=== PATIENT | male | born 1990 | race Caucasian/White ===

== ENCOUNTER 2020-09-29 15:03 | Outpatient (CLI) | payer BC, SELFPAY ==
--- NOTE | ~2020-09-29 | XR_ITS ---
XR tibia fibula LT 2V DATE: 09/29/2020 15:21 INDICATION: Malformation of lower leg TECHNIQUE: AP and lateral views COMPARISON: 10/01/2018 left lower leg 04/13/2017 left lower leg FINDINGS: There is a stable expansile lucent defect with narrow zone of transition involving the prox imal fibular shaft, unchanged in size since 10/01/2018 and 04/13/2017, measuring approximately 4 cm abdi gth. No periosteal reaction. Different diagnosis includes fibrous dysplasia, unicameral bone cyst, an eurysmal bone cyst. Otherwise no fracture, dislocation, periosteal reaction or bone destruction. Knee joint and ankle rubia nt appear normal. 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 TANCE ABUSE RN IMPRESSION: Stable benign-appearing expansile lucent lesion of the proximal fib ular shaft since 10/01/2018 and 04/13/2017
== END 2020-09-29 15:04 | disposition home or self-care (01) ==
PROVIDERS: Family Provider Family Medicine; PCP Family Medicine; Visit Provider Physician Assistant
DX: Q74.2 Other congenital malformations of lower limb(s), including pelvic girdle (principal); M85.662 Other cyst of bone, left lower leg
CPT/HCPCS: 73590

== ENCOUNTER 2021-12-17 08:43 | Emergency (ER) | payer BC, SELFPAY ==
[2021-12-17 08:50] VITALS: BP 124/75; PULSE 65; RESP 16; TEMP 36.1; O2SAT 100
--- NOTE | 2021-12-17 09:48 | ED.EAR ---
HPI - Ear Problem General Chief complaint: Ear Stated complaint: Ear Pain Time Seen by Provider: 12/17/21 09:49 Source: patient Mode of arrival: ambulatory Limitations: no limitations History of Present Illness HPI Narrative: 31-year-old male presents with complaint of right ear pain for 2 to 3 days. Reports he was having drainage coming from his right ear. Over the last year he has had several inner and outer ear infections. During the summer he had a new pool and had several ear infections but he thought that it was related to the swelling. No recent swimming. Patient does have an ENT specialist to follow-up with. All systems reviewed and negative except as noted above. Related Data Allergies Allergy/AdvReac Type Severity Reaction Status Date / Time HYDROCODONE BIT Allergy Unknown ITCHING Uncoded 03/28/21 15:08 Review of Systems Review of Systems: CONSTITUTIONAL: Denies fever, chills, or sweats. EYES: Denies visual changes, redness, or discharge. ENT: Denies rhinorrhea, congestion, sore throat. Reports right ear pain. CARDIOVASCULAR: Denies chest pain, palpitations, or edema. RESPIRATORY: Denies cough or dyspnea. GASTROINTESTINAL: Denies abdominal pain, nausea, vomiting, or diarrhea. GENITOURINARY: Denies dysuria or hematuria. SKIN: Denies rash or itching. MUSCULOSKELETAL: Denies back pain, joint pain, or myalgia. NEUROLOGIC: Denies headache, numbness, or weakness. PSYCHIATRIC: Denies anxiety or depression. All other systems reviewed are negative, except as documented in HPI. [facility] Past Medical History Medical History GERD (gastroesophageal reflux disease) Neoplasm of left fibula Surgical History Surgical History H/O hand surgery Social History Social History Smoking status: Former smoker Second hand tobacco smoke exposure: No Smoking end date: 09/03/17 Alcohol intake: current Substance use: never Substance use type: does not use Gender identity (if verbalized by the patient): Male Comments At time of signature, agree with nursing past medical, surgical, social and family history. There is no relevant family history pertinent to the presenting complaint. Exam Narrative: GENERAL: This is a well-nourished, well-developed patient, in no apparent distress. HEAD: normocephalic, atraumatic. EYES: PERRL. Sclera clear/white. Vision is grossly intact. EARS: External ears normal, TMs normal without perforation. Hearing grossly intact. Right ear canal is erythematous with swelling and a milky drainage. NOSE: External nose normal with no obvious nasal discharge, nares without redness, no rhinorrhea. THROAT: Mucous membranes moist, posterior pharynx clear. NECK: Neck supple, non-tender without lymphadenopathy, masses or thyromegaly. CARDIOVASCULAR: Regular rate and rhythm without murmurs, gallops, or rubs. RESPIRATORY: Clear to auscultation. Breath sounds equal bilaterally. No wheezes, rales, or rhonchi. SKIN: warm, Dry, intact with no suspicious lesions or rash, good texture and turgor. NEURO: awake, alert, and oriented to person, place and time. There were no obvious focal neurologic abnormalities. EXTREMITIES: Normal range of motion to all extremities. Course Course Level of Care: Express Care Visit Vital Signs Vital signs: Vital Signs Temperature 36.1 C L 12/17/21 08:50 Pulse Rate 65 12/17/21 08:50 Respiratory Rate 16 12/17/21 08:50 Blood Pressure 124/75 12/17/21 08:50 Pulse Oximetry 100 12/17/21 08:50 Temperature 36.1 C L 12/17/21 08:50 Pulse Rate 65 12/17/21 08:50 Respiratory Rate 16 12/17/21 08:50 Blood Pressure 124/75 12/17/21 08:50 Pulse Oximetry 100 12/17/21 08:50 Reviewed Medical Decision Making MDM Narrative Medical decision making narrative: Patient is aware of diagnosis, understands and a
== END 2021-12-17 09:57 | disposition home or self-care (01) ==
PROVIDERS: Emergency Provider Nurse Practitioner Family; PCP Family Medicine
DX: H60.91 Unspecified otitis externa, right ear (principal); Z87.891 Personal history of nicotine dependence; K21.9 Gastro-esophageal reflux disease without esophagitis; Z85.830 Personal history of malignant neoplasm of bone
CPT/HCPCS: 99213; G0463

== ENCOUNTER 2023-10-31 10:56 | Outpatient (CLI) | payer BC, SELFPAY ==
--- NOTE | ~2023-10-31 | XR_ITS ---
EXAMINATION: XR tibia fibula LT 2V DATE: 10/31/2023 11:12 INDICATION: Neoplasm of unspecified behavior of bone. TECHNIQUE: 2 views of left tibia and fibula were obtained. COMPARISON: Left tibia and fibula radiograph 04/13/2017, 09/29/20 FINDINGS: Bone alignment is normal. No fracture. In the proximal fibular diaphysis, there is a 4.2 x 1.8 cm expansile nonaggressive lytic lesion with sclerotic margin and thinning of the lateral cortex. Joint spaces are normal. IMPRESSION: 1. Nonaggressive lytic lesion in proximal left fibular diaphysis, stable from 04/13/2017, likely benig n. The differential diagnosis includes unicameral bone cyst, aneurysmal bone cyst, fibrous dysplasia, enchondroma, and nonossifying fibroma. Reviewed, dictated and finalized at location A. RACT GRAPHIC DESIGNER IMPRESSION: 1. Nonaggressive lytic lesion in proximal left fibular diaphysis, stable from , likely benign. The differential diagnosis includes unicameral bone cy st, aneurysmal bone cyst, fibrous dysplasia, enchondroma, and nonossifying fibr mp.
[2023-10-31 11:43] LABS: Basophils Absolute Auto 0.1 K/mm3 (0.0-0.1); Basophils Percent Auto 1.6 % (0.2-1.2); Eosinophils Absolute Auto 0.3 K/mm3 (0-0.3); Eosinophils Percent Auto 5.5 % (0-4.4); Hemoglobin 11.9 g/dL (14.0-18.0); Immature Granulocyte Absolute 0.01 K/mm3 (0.00-0.031); Immature Granulocyte Percent A 0.2 % (0-0.5); Lymphocytes Absolute Auto 3.17 K/mm3 (0.9-3.2); Lymphocytes Percent Auto 51.4 % (18.3-44.2); Mean Corpuscular Hemoglobin 23.2 pg (26-34); Mean Corpuscular Volume 80.1 fl (80-100); Mean Platelet Volume 10.1 fl (7.4-10.4); Monocytes Absolute Auto 0.6 K/mm3 (0.1-0.6); Monocytes Percent Auto 9.7 % (2.6-8.5); Neutrophils Percent Auto 31.6 % (45.5-73.1); Platelet Count Result 379 k/mm3 (150-375); Red Blood Count 5.12 M/mm3 (4.6-6.20); Red Cell Distribution Width 16.8 % (11.5-14.5); White Blood Count 6.2 K/mm3 (4.5-10.0)
[2023-10-31 12:03] LABS: Alanine Aminotransferase 23 U/L (6-50); Albumin Level 4.4 g/dL (3.5-5.1); Alkaline Phosphatase 77 U/L (38-126); Anion Gap 9 mmol/L (8-16); Aspartate Amino Transferase 34 U/L (17-59); Bilirubin,Total 0.4 mg/dL (0.2-1.3); Blood Urea Nitrogen 14 mg/dL (9-20); Calcium 9.5 mg/dL (8.4-10.2); Carbon Dioxide 25 mmol/L (22-30); Chloride 108 mmol/L (98-107); Estimated Glomerular Filt Rate > 60; Glucose 86 mg/dL (65-110); Potassium 3.8 mmol/L (3.4-5.0); Sodium 142 mmol/L (137-145)
[2023-10-31 12:22] LABS: Iron 36 ug/dL (49-181)
[2023-10-31 12:31] LABS: Percent Iron Saturation 7 % (20-50)
[2023-10-31 12:42] LABS: Anisocytosis 1+ (NORMAL); Hypochromasia 1+ (NORMAL); Platelet Estimate Increased (Adequate); Schistocytes None Seen (NORMAL)
[2023-10-31 12:57] LABS: Ferritin 6.46 ng/mL (17.9-464)
[2023-11-03 21:50] LABS: H pylori, Urea Breath DETECTED (NOT DETECTED)
== END 2023-10-31 10:57 | disposition home or self-care (01) ==
LOC: ANHIMG 11:00
PROVIDERS: PCP Family Medicine; Visit Provider Physician Assistant Medical
DX: D16.22 Benign neoplasm of long bones of left lower limb (principal); D64.9 Anemia, unspecified; E78.2 Mixed hyperlipidemia
CPT/HCPCS: 36415; 73590; 80053; 82728; 83013; 83540; 83550; 85025

== ENCOUNTER 2024-01-29 00:58 | Day surgery (SDC) | payer BC, SELFPAY ==
[2024-01-10 09:47] VITALS: BMI 29.7
[2024-01-29 06:29] VITALS: BP 128/68; PULSE 64; RESP 16; TEMP 36.2; O2SAT 99
[2024-01-29] MEDS: LACTATED RINGERS 1,000 ML 150 ML IV CONT (06:37)
--- NOTE | 2024-01-29 07:18 | WPDANESEPPF ---
Anes - Initial Pre Proc Eval Procedure: Operation Date: 01/29/24 07:30 Proposed Procedures p Esophagogastroduodenoscopy - Moustapha Chowdary MD Date/Time: 01/29/24 07:18 Surgeon: Moustapha Chowdary MD Pre Op Diagnosis: JENNIFER, Eosinophilic esophagitis, other bacterial inf Patient Data Age: 33 Gender: M Height: 1.7 m Weight: 86.5 kg Last Vital Signs Temp 97.1 F L 01/29/24 06:29 Pulse 64 01/29/24 06:29 Resp 16 01/29/24 06:29 BP 128/68 01/29/24 06:29 Pulse Ox 99 01/29/24 06:29 O2 Del Method Room Air 01/29/24 06:29 Allergies Allergy/AdvReac Type Severity Reaction Status Date / Time HYDROCODONE BIT Allergy Unknown ITCHING Uncoded 01/29/24 06:26 Home Medications Medication Instructions Recorded Confirmed Type ferrous sulfate 325 mg (65 mg 325 mg PO DAILY #30 tabs 11/01/23 01/29/24 Rx iron) tablet dextroamphetamine-amphetamine ER 10 mg PO DAILY #30 caps 01/09/24 01/29/24 Rx 10 mg 24hr capsule,extend release (Adderall XR) Patient hx anesthesia problems: none Family hx anesthesia problems: none Results Review: All pre-operative results and documents have been reviewed as part of the pre-operative evaluation. [facility] Past Medical History Medical History ADHD Eosinophilic esophagitis GERD (gastroesophageal reflux disease) Neoplasm of left fibula Surgical History Surgical History H/O hand surgery H/O vasectomy Family History Family History Father Alcoholism Mother Diabetes mellitus Sibling Asthma Social History Social History Smoking packs per day: 1 Smoking cigarettes per day: 20.0 Smoking status: Former smoker Tobacco type: cigarettes Second hand tobacco smoke exposure: No Smoking end date: 09/03/17 Alcohol intake: current Drinks per week: 1 Substance use: never Substance use type: does not use Do You Feel Safe in your Home?: Yes Lack of Transportation: No Lack of Food: Never True Current Housing: I Have Housing Concerned About Future Housing: No Difficulty Paying Gas/Electric Bills: No Difficulty Paying for Meds: No Currently Unemployed: No Difficulty w/ Childcare or Family Care: No Living arrangements: with family Occupation/Education: occupation Gender identity (if verbalized by the patient): Male Spiritual care concerns: No Agree to blood products: Yes Anes - Eval Final PreProcedure Day of Procedure 01/29/24 07:18 Patient weight: normal Heart: regular rate and rhythm Lungs: clear to auscultation Airway: Mallampati scale class II Neurological: alert and oriented Last oral intake: >/= 8 hours ASA classification: II Emergent: no Anesthetic plan: proceed Anesthesia type and monitoring: general GIVS and standard monitoring Results Review: All pre-operative results and documents have been reviewed as part of the pre-operative evaluation. Informed Consent: The patient's anesthetic plan and its attendant risks and benefits were discussed with the patient/family/POA. Questions were solicited and answers provided to the satisfaction of the patient/family/POA.
--- NOTE | 2024-01-29 07:26 | PM.HPGS ---
History of Present Illness History of Present Illness Consent: Risks, benefits, and alternatives have been discussed and questions answered. Patient agrees to proceed with procedure. Chief complaint: JENNIFER, Eosinophilic esophagitis, other bacterial inf Narrative: Elgin Alejandra is a 33 year old male here for egd and colonoscopy. He had mild anemia and positive H. pylori breath test. Low hgb was noted recently when he went to donate blood, had EGD 2016 when had dysphagia resolved since, biopsies showed EoE. Review of Systems Review of Systems: All systems reviewed & are unremarkable except as noted in HPI and below PMFSH Past Medical History Medical History ADHD Eosinophilic esophagitis GERD (gastroesophageal reflux disease) Neoplasm of left fibula Surgical History Surgical History H/O hand surgery H/O vasectomy Family History Family History Father Alcoholism Mother Diabetes mellitus Sibling Asthma Social History Social History Smoking packs per day: 1 Smoking cigarettes per day: 20.0 Smoking status: Former smoker Tobacco type: cigarettes Second hand tobacco smoke exposure: No Smoking end date: 09/03/17 Alcohol intake: current Drinks per week: 1 Substance use: never Substance use type: does not use Do You Feel Safe in your Home?: Yes Lack of Transportation: No Lack of Food: Never True Current Housing: I Have Housing Concerned About Future Housing: No Difficulty Paying Gas/Electric Bills: No Difficulty Paying for Meds: No Currently Unemployed: No Difficulty w/ Childcare or Family Care: No Living arrangements: with family Occupation/Education: occupation Gender identity (if verbalized by the patient): Male Spiritual care concerns: No Agree to blood products: Yes Meds Home Medications and Allergies Home Medications Medication Instructions Recorded Confirmed Type ferrous sulfate 325 mg (65 mg 325 mg PO DAILY #30 tabs 11/01/23 01/29/24 Rx iron) tablet dextroamphetamine-amphetamine ER 10 mg PO DAILY #30 caps 01/09/24 01/29/24 Rx 10 mg 24hr capsule,extend release (Adderall XR) Allergies Allergy/AdvReac Type Severity Reaction Status Date / Time HYDROCODONE BIT Allergy Unknown ITCHING Uncoded 01/29/24 06:26 Vital Signs Vital Signs - 24 hr 01/29/24 06:29 Temperature 97.1 F L Pulse Rate 64 Respiratory Rate 16 Blood Pressure 128/68 Pulse Oximetry 99 Oxygen Delivery Room Air Exam Const: General: comfortable and no acute distress HENMT: Face/Nose/Sinus: Normal nares present Eyes: General: appearance normal, both eyes and all related structures Neck: Neck: no JVD Resp: Auscultation: clear to auscultation bilaterally Cardio: Rate: regular rate Rhythm: regular rhythm GI: Inspection: non-distended GI Palp: Yes Soft to palpation Skin: General skin exam: normal color Neuro: General: gait normal Speech: normal speech Extrem: General: normal to inspection Psych: Mental Status: mental status grossly normal Assessment and Plan Assessment and plan (1) H. pylori infection: Code(s): A04.8 - Other specified bacterial intestinal infections Status: Acute Assessment and Plan: egd with bx, already completed treatment (2) Iron deficiency anemia: Code(s): D50.9 - Iron deficiency anemia, unspecified Status: Acute Assessment and Plan: egd and colonoscopy
[2024-01-29 07:43] VITALS: BP 120/88; PULSE 71; RESP 20; O2SAT 99
[2024-01-29 07:53] VITALS: BP 123/77; PULSE 68; RESP 20; O2SAT 100
[2024-01-29 08:03] VITALS: BP 125/69; PULSE 67; RESP 16; O2SAT 100
--- NOTE | 2024-01-29 08:21 | SUR.PHASEII ---
Discharge delayed due to ride conflict.
== END 2024-01-29 08:30 | disposition home or self-care (01) ==
PROVIDERS: PCP Family Medicine; Visit Provider Internal Medicine Gastroenterology
PROC: 0DJ08ZZ Inspection of Upper Intestinal Tract, Via Natural or Artificial Opening Endoscopic (ICD-10-PCS; CPT 43235; principal; 2024-01-29 07:30)
DX: K29.80 Duodenitis without bleeding (principal); K29.50 Unspecified chronic gastritis without bleeding; D50.9 Iron deficiency anemia, unspecified; Z87.19 Personal history of other diseases of the digestive system; K21.9 Gastro-esophageal reflux disease without esophagitis; Z87.891 Personal history of nicotine dependence; F90.9 Attention-deficit hyperactivity disorder, unspecified type
CPT/HCPCS: 43239; 88305; J2704; J7120

== ENCOUNTER 2024-05-26 19:33 | Emergency (ER) | payer BC, SELFPAY ==
[2024-05-26 19:36] VITALS: BP 123/94; PULSE 78; RESP 20; TEMP 36.5; O2SAT 98
--- NOTE | 2024-05-26 20:14 | ED.EAR ---
HPI - Ear Problem General Chief complaint: Ear Stated complaint: ear infection Time Seen by Provider: 05/26/24 19:51 Source: patient Mode of arrival: ambulatory Limitations: no limitations History of Present Illness HPI Narrative: This is a 33-year-old male, with no significant past medical history, presents to the emergency department complaining of right ear pain for the past 3 days. The patient states in that time, he has had upper respiratory congestion, bilateral ear fullness with pain on the right described as dull and intermittently throbbing, rated 4/10. He denies associated fevers, chills or cough. He states today he has noticed bilateral eye watering and mild sensation of foreign body. He denies any eye trauma or known environmental exposures. He has no other complaints at this time. Related Data Allergies Allergy/AdvReac Type Severity Reaction Status Date / Time HYDROCODONE BIT Allergy Unknown ITCHING Uncoded 05/26/24 19:41 Review of Systems Review of Systems: All systems reviewed & are unremarkable except as noted in HPI and below PMFSH Past Medical History Medical History ADHD Eosinophilic esophagitis GERD (gastroesophageal reflux disease) Neoplasm of left fibula Surgical History Surgical History H/O hand surgery H/O vasectomy Family History Family History Father Alcoholism Mother Diabetes mellitus Sibling Asthma Social History Social History Smoking packs per day: 1 Smoking cigarettes per day: 20.0 Smoking status: Former smoker Tobacco type: cigarettes Second hand tobacco smoke exposure: No Smoking end date: 09/03/17 Alcohol intake: current Drinks per week: 1 Substance use: never Substance use type: does not use Do You Feel Safe in your Home?: Yes Lack of Transportation: No Lack of Food: Never True Current Housing: I Have Housing Concerned About Future Housing: No Difficulty Paying Gas/Electric Bills: No Difficulty Paying for Meds: No Currently Unemployed: No Difficulty w/ Childcare or Family Care: No Living arrangements: with family Occupation/Education: occupation Gender identity (if verbalized by the patient): Male Spiritual care concerns: No Agree to blood products: Yes Exam Narrative: GENERAL: Well-developed, well-nourished, and in no acute distress. HEAD: Normocephalic, atraumatic. EYES: PERRLA and EOMI. Mild bilateral scleral injection with cobblestoning noted on the palpebral conjunctiva ENT: Nares clear, no rhinorrhea or epistaxis. Mucous membranes moist. Oropharynx without tonsillar hypertrophy exudate or other lesions. Bilateral TMs pearly raygoza and bulging with faint erythema noted on the right CHEST: Clear to auscultation. No respiratory distress. No wheezes rales or rhonchi HEART: Regular rate and rhythm. No murmur heard. Normal peripheral pulses. EXTREMITIES: Normal range of motion. No edema. SKIN: Warm, dry, no rash. NEURO: Alert and oriented x3. No focal deficit. Moving all 4 limbs spontaneously PSYCH: Normal mood and affect. Course Course Emergency Course: 20:27 - The patient's exam is consistent with a viral upper respiratory infection and viral conjunctivitis. I do not suspect otitis media at this time. Will discharge with decongestants and the beginning eyedrops. I advised the patient follow-up with his primary care doctor. Discussed return and emergency precautions including signs/symptoms of otitis media. The patient voiced understanding and agreement with the plan. All questions answered to his satisfaction. Vital Signs Vital signs: Vital Signs Temperature 97.7 F 05/26/24 19:36 Pulse Rate 78 05/26/24 19:36 Respiratory Rate 20 05/26/24 19:36 Blood Pressure 123/94 H 0
== END 2024-05-26 20:39 | disposition home or self-care (01) ==
PROVIDERS: Emergency Provider Preventive Medicine Aerospace Medicine; PCP Family Medicine
DX: B30.9 Viral conjunctivitis, unspecified (principal); J06.9 Acute upper respiratory infection, unspecified; H92.01 Otalgia, right ear
CPT/HCPCS: 99283

== ENCOUNTER 2024-10-02 14:32 | Outpatient (CLI) | payer BC, SELFPAY ==
[2024-10-02 15:02] LABS: Basophils Absolute Auto 0.1 K/mm3 (0.0-0.1); Eosinophils Absolute Auto 1.1 K/mm3 (0-0.3); Eosinophils Percent Auto 10.8 % (0-4.4); Hematocrit 44.5 % (42.0-52.0); Hemoglobin 14.2 g/dL (14.0-18.0); Immature Granulocyte Absolute 0.03 K/mm3 (0.00-0.031); Immature Granulocyte Percent A 0.3 % (0-0.5); Lymphocytes Absolute Auto 3.68 K/mm3 (0.9-3.2); Lymphocytes Percent Auto 37.8 % (18.3-44.2); Mean Corpuscular HGB Conc 31.9 g/dl (32-36); Mean Corpuscular Hemoglobin 28.9 pg (26-34); Mean Corpuscular Volume 90.6 fl (80-100); Mean Platelet Volume 9.6 fl (7.4-10.4); Monocytes Absolute Auto 0.6 K/mm3 (0.1-0.6); Monocytes Percent Auto 6.3 % (2.6-8.5); Neutrophils Absolute Auto 4.3 K/mm3 (1.3-6.7); Neutrophils Percent Auto 43.8 % (45.5-73.1); Platelet Count Result 322 k/mm3 (150-375); Red Blood Count 4.91 M/mm3 (4.6-6.20); Red Cell Distribution Width 13.2 % (11.5-14.5); White Blood Count 9.7 K/mm3 (4.5-10.0)
--- OUTSIDE RECORDS SUMMARY | 2024-10-02 15:09 | XMS_ITS | Referral Summary ---
Author Organization [facility] Address [address] [place] [address] Care Team Providers Care Language Assistant Name Role Phone Tia Stone MD Primary Care Provider + Source Comments [facility],non-owned Affiliates and Associated Physician Practices is amultiple site organization consisting of ambulatory clinics and hospital sitesin [place], [place], [place] and [place]. This disclosure is being madepursuant to the Care Everywhere program and may not contain all information available regarding this patient. Last updated 18.[facility] [place] Allergies Active Allergy Reactions Criticality Noted Date Comments Hydrocodone-Acetaminophen Itching Low 03/30/2017 Medications * Be aware that medications may not be up to date on this document. Alwaysverify current medications with the patient. Medication Sig Dispensed Refills Start Date End Date Status ibuprofen (MOTRIN) 400 MG tablet Take 400 mg by mouth q8h PRN (Pain). 30 tablet 0 03/30/2017 Active Social History Tobacco Use Types Packs/Day Years Used Date Smoking Tobacco: Every Day Smokeless Tobacco: Never Alcohol Use Standard Drinks/Week Comments Yes 0 (1 standard drink = 0.6 oz pur e alcohol) Sex and Gender Information Value Date Recorded Sex Assigned at Not on file Gender Identity Not on file Sexual Orientation Not on file Last Filed Vital Signs Vital Sign Reading Time Taken Comments Blood Pressure 135/90 03/30/2017 10:26 PM CDT Pulse 82 03/30/2017 10:26 PM CDT Temperature 36.7 ??C (98 ??F) 03/30/2017 7:02 PM CDT Respiratory Rate 16 03/30/2017 10:26 PM CDT Oxygen Saturation 98% 03/30/2017 10:26 PM CDT Inhaled Oxygen Concentration - - Weight 72.6 kg (160 lb) 03/30/2017 7:02 PM CDT Height 167.6 cm (5' 6 ) 03/30/2017 7:02 PM CDT Body Mass Index 25.82 03/30/2017 7:02 PM CDT Plan of Treatment Not on file Care Teams Language Assistant Relationship Specialty Start Date End Date Tia Stone MD [address] [place] [address] PCP - General 05/31/09
--- OUTSIDE RECORDS SUMMARY | 2024-10-02 15:09 | XMS_ITS | Clinical Summary ---
Author Organization [facility] [address] Address [address] [place] [address] Care Team Providers Care Food Technician Name Role Phone Tia Stone MD Primary Care Provider + Source Comments [facility],non-owned Affiliates and Associated Physician Practices is amultiple site organization consisting of ambulatory clinics and hospital sitesin [place], [place], [place] and [place]. This disclosure is being madepursuant to the Care Everywhere program and may not contain all information available regarding this patient. Last updated 18.[facility] [address] Allergies Active Allergy Reactions Criticality Noted Date [...] 03/30/2017 7:02 PM CDT Plan of Treatment Health Maintenance Due Date Last Done Comments HIV SCREENING 2005 HEPATITIS C SCREENING 09/17/2008 DTAP/TDAP/TD VACCINES (1 - Tdap) 2009 HEPATITIS B VACCINE (1 of 3 - 19+ 3-dose series) 2009 PNEUMOCOCCAL VACCINE (1 of 2 - PCV) 2009 COVID-19 VACCINE (1 - 2023-2 5 season) 2024 INFLUENZA VACCINE (#1) 2024 DEPRESSION SCREENING 09/03/2024 ZOSTER VACCINE (1 of 2) 2040 HIB VACCINE Aged Out No longer eligi ble based on patient's age to complete this topic HPV VACCINE Aged Out No longer eligi ble based on patient's age to complete this topic MENINGOCOCCAL (Group B) VACCINE Aged Out No longer eligible based on patient's age to complete this topic MENINGOCOCCAL VACCINE Aged Out No jayde negro eligible based on patient's age to complete this topic Care Teams Food Technician Relationship Specialty Start Date End Date Tia Stone MD [address] [place] [address] PCP - General 05/31/09
--- OUTSIDE RECORDS SUMMARY | 2024-10-02 15:09 | XMS_ITS | Patient Health Summary ---
Author Organization [facility] Address [address] [place] [address] Care Team Providers Care Dental Intern Name Role Phone Tia Stone MD Primary Care Provider + Note from [facility],non-owned Affiliates and Associated Physician Practices is amultiple site organization consisting of ambulatory clinics and hospital sitesin [place], [place], [place] and [place]. This disclosure is being madepursuant to the Care Everywhere program and may not contain all information available regarding this patient. Last updated 18.[facility] Allergies * Hydrocodone-Acetaminophen(Itching) -Low Criticality Medications * Be aware that medications may not be up to date on this document. Alwaysverify current medications with the patient. * ibuprofen (MOTRIN) 400 MG tablet(Started 03/30/2017) Take 400 mg by mouth q8h PRN (Pain). Social History Tobacco Use Types Packs/Day Years [...] Mass Index 25.82 03/30/2017 7:02 PM CDT Procedures * XR FOREARM LEFT 2VW OR MORE(Performed 03/30/2017) * XR FEMUR LEFT 2VW(Performed 03/30/2017) * XR CHEST 2VW(Performed 03/30/2017) Results * XR FOREARM LEFT 2VW (03/30/2017 7:56 PM CDT) Anatomical Region Laterality Modality Upper Extremity Other Impressions 04/02/2017 2:21 PM CDT Impression: No acute osseous injury. Dictated by Royal Pierre MD (resident physician in radiology) This report was approved ??by Eric Pierre ?? on 03/31/2017 8:[address] MIKE Thomas MD have personally reviewed and interpreted this examination/study. This report was electronically signed by Dr. MIKE URBAN MD ??on 04/02/2017 2:21 PM . Narrative 04/02/2017 2:21 PM CDT Exam: XR FOREARM LEFT 2 VW Date: 03/30/2017 7:56 PM History: trauma Comparison: None Findings: The osseous structures are intact and well aligned without acute fracture or dislocation. The joint spaces are preserved. Bone density and texture are normal. There is no soft tissue swelling. Procedure Note Mike Urban MD - 11/30/2017 Exam: XR FOREARM LEFT 2 VW Date: 03/30/2017 7:56 PM History: trauma Comparison: None Findings: The osseous structures are intact and well aligned without acute fractureor dislocation. The joint spaces are preserved. Bone density and textureare normal. There is no soft tissue swelling. IMPRESSION Impression: No acute osseous injury. Dictated by Royal Pierre MD (resident physician in radiology) This report was approved by Eric Pierre on 03/31/2017 8:29 AM . I, Dr. Dr. MIKE URBAN MD have personally reviewed and interpreted thisexamination/study. This report was electronically signed by Dr. MIKE URBAN MD on04/02/2017 2:21 PM . Enrrique Laureano MD DIAGNOSTIC IMAGING O RDERABLES * XR FEMUR LEFT 2VW (03/30/2017 7:56 PM CDT) Anatomical Region Laterality Modality Lower Extremity Other Impressions 04/02/2017 2:21 PM CDT Impression: No acute osseous injury. Dictated by Royal Pierre MD (resident physician in radiology) This report was approved ??by Eric Pierre ?? on 03/31/2017 8:[address] MIKE Thomas MD have personally reviewed and interpreted this examination/study. This report was electronically signed by Dr. MIKE URBAN MD ??on 04/02/2017 2:21 PM . Narrative 04/02/2017 2:21 PM CDT Exam: XR FEMUR LEFT 2+ VW Date: 03/30/2017 7:56 PM History: pain after injury Comparison: None Findings: The osseous structures are intact and well aligned without acute fracture or dislocation. The left hip joint space is preserved. Bone density and texture are normal. There is no soft tissue swelling. Procedure Note Mike Urban MD - 11/30/2017 Exam: XR FEMUR LEFT 2+ VW Date: 03/30/2017 7:56 PM History: pain after injury Comparison: None Findings: The osseous structures are intact and well aligned without acute fractureor dislocation. The left hip joint space is preserved. Bone density andtexture are normal. There is no soft tissue swelling. IMPRESSION Impression: No acute osseous injury. Dictated by Royal Pierre MD (resident physician in radiology) This report was approved by Eric Pierre on 03/31/2017 8:[address] MIKE Thomas MD have personally reviewed and interpreted thisexamination/study. This report was electronically signed by Dr. MIKE URBAN MD on04/02/2017 2:21 PM . Donna Munguia CONTRACT NEGOTIATION SPECIALIST-VOCAL ARTIST DIAGNOSTIC IM AGING ORDERABLES * XR CHEST 2VW (03/30/2017 7:56 PM CDT) Anatomical Region Laterality Modality Chest Other Impressions 04/02/2017 2:20 PM CDT IMPRESSION: No acute pulmonary process. Dictated by Silas Loyola MD (Paint Mixer Hand). This report was approved ??by Fernando Chan MD ?? on 03/31/2017 9:[address] MIKE Thomas MD have personally reviewed and interpreted this examination/study. This report was electronically signed by Dr. MIKE URBAN MD ??on 04/02/2017 2:20 PM . Narrative 04/02/2017 2:20 PM CDT EXAMINATION: XR CHEST PA AND LATERAL HISTORY: Pain after injury COMPARISON: No prior study is available for comparison. FINDINGS: The lungs are clear. There is no focal consolidation, pleural effusion, or pneumothorax. The cardiomediastinal silhouette is normal. The visible bony thorax is intact. Procedure Note Lucía Sifuentes MD - 11/30/2017 EXAMINATION: XR CHEST PA AND LATERAL HISTORY: Pain after injury COMPARISON: No prior study is available for comparison. FINDINGS: The lungs are clear. There is no focal consolidation, pleural effusion, orpneumothorax. The cardiomediastinal silhouette is normal. The visible bonythorax is intact. IMPRESSION IMPRESSION: No acute pulmonary process. Dictated by Silas Loyola MD (Paint Mixer Hand). This report was approved by Fernando Chan MD on 03/31/2017 9:[address] MIKE Thomas MD have personally reviewed and interpreted thisexamination/study. This report was electronically signed by Dr. MIKE URBAN MD on04/02/2017 2:20 PM . Donna Munguia CONTRACT NEGOTIATION SPECIALIST-VOCAL ARTIST DIAGNOSTIC IM AGING ORDERABLES Care Teams Dental Intern Relationship Specialty Start Date End Date Tia Stone MD [address] [place] [address] PCP - General 05/31/09
[2024-10-02 15:17] LABS: Alanine Aminotransferase 13 U/L (6-50); Albumin Level 4.2 g/dL (3.5-5.1); Alkaline Phosphatase 55 U/L (38-126); Anion Gap 9 mmol/L (4-12); Aspartate Amino Transferase 20 U/L (17-59); Bilirubin,Total 0.5 mg/dL (0.2-1.3); Blood Urea Nitrogen 14 mg/dL (9-20); Calcium 9.2 mg/dL (8.4-10.2); Carbon Dioxide 27 mmol/L (22-30); Chloride 103 mmol/L (98-107); Cholesterol 199 mg/dL (0-200); Estimated Glomerular Filt Rate > 60; Glucose 88 mg/dL (65-110); HDL Direct 60 mg/dL; Potassium 3.7 mmol/L (3.4-5.0); Sodium 139 mmol/L (137-145); Triglycerides 55 mg/dL (<150)
[2024-10-02 15:27] LABS: LDL Cholesterol Direct 122 mg/dL
[2024-10-02 16:05] LABS: Iron 65 ug/dL (49-181)
[2024-10-02 16:15] LABS: Percent Iron Saturation 15 % (20-50)
[2024-10-02 16:21] LABS: Folic Acid 8.4 ng/mL (2.76->20); Free T4 Free Thyroxine 0.99 ng/dL (0.78-2.19)
[2024-10-02 20:22] LABS: Hemoglobin A1C 5.8 % (<5.7)
== END 2024-10-02 14:33 | disposition home or self-care (01) ==
LOC: ANHLAB 14:33
PROVIDERS: PCP Family Medicine; Visit Provider Student in an Organized Health Care Education/Training Program
DX: F90.9 Attention-deficit hyperactivity disorder, unspecified type (principal); K20.0 Eosinophilic esophagitis; D50.9 Iron deficiency anemia, unspecified; R53.83 Other fatigue; R63.4 Abnormal weight loss; D64.9 Anemia, unspecified; R20.0 Anesthesia of skin
CPT/HCPCS: 36415; 80053; 80061; 82607; 82728; 82746; 83036; 83540; 83550; 84439; 84443; 85025

== ENCOUNTER 2025-02-24 01:44 | Emergency (ER) | payer BC, SELFPAY ==
--- NOTE | ~2025-02-24 | CT_ITS ---
Non-contrast CT scan of the Abdomen and Pelvis Clinical indication: Left flank pain Technique: 2.5 mm axial scans were obtained through the abdomen and pelvis without intravenous or or al contrast. Dose reduction technique was used on this scan by utilizing automated exposure control a nd iterative reconstruction technique. The dose-length product (DLP) was 479.61 mGy-cm. Findings: Images through the lung bases reveal no abnormalities. 2 mm proximal left ureteral stone present (axial image 47), with minimal fullness of left renal colle cting system. No right renal or right ureteral stone. No right hydronephrosis. The liver, spleen, pancreas, gallbladder, and adrenals appear normal. There is no aortic aneurysm. There is no evidence of bowel obstruction. Images through the pelvis were performed. There is no evidence of ascites or lymphadenopathy. Urinary bladder unremarkable. Prostate gland seminal vesicles are unremarkable. Impression: 2 mm proximal left ureteral stone with minimal fullness of the left renal collecting system. Reviewed, dictated and finalized at [facility]. Impression: 2 mm proximal left ureteral stone with minimal fullness of the left renal colle cting system.
[2025-02-24 01:51] VITALS: BP 132/90; PULSE 67; RESP 20; TEMP 36.3; O2SAT 97
[2025-02-24 01:52] VITALS: BP 132/90; PULSE 67; RESP 20; TEMP 36.6; O2SAT 100
[2025-02-24 02:19] LABS: Basophils Absolute Auto 0.1 K/mm3 (0.0-0.1); Eosinophils Absolute Auto 0.5 K/mm3 (0-0.3); Eosinophils Percent Auto 4.4 % (0-4.4); Hematocrit 47.3 % (42.0-52.0); Hemoglobin 15.3 g/dL (14.0-18.0); Immature Granulocyte Absolute 0.05 K/mm3 (0.00-0.031); Immature Granulocyte Percent A 0.4 % (0-0.5); Lymphocytes Absolute Auto 5.56 K/mm3 (0.9-3.2); Lymphocytes Percent Auto 45.2 % (18.3-44.2); Mean Corpuscular HGB Conc 32.3 g/dl (32-36); Mean Corpuscular Hemoglobin 29.9 pg (26-34); Mean Corpuscular Volume 92.4 fl (80-100); Mean Platelet Volume 9.6 fl (7.4-10.4); Monocytes Percent Auto 8.1 % (2.6-8.5); Neutrophils Percent Auto 40.9 % (45.5-73.1); Platelet Count Result 302 k/mm3 (150-375); Red Blood Count 5.12 M/mm3 (4.6-6.20); Red Cell Distribution Width 13.2 % (11.5-14.5); White Blood Count 12.3 K/mm3 (4.5-10.0)
[2025-02-24 02:24] LABS: Alanine Aminotransferase 22 U/L (6-50); Albumin Level 4.4 g/dL (3.5-5.1); Alkaline Phosphatase 54 U/L (38-126); Anion Gap 9 mmol/L (4-12); Aspartate Amino Transferase 31 U/L (17-59); Bilirubin,Total 0.6 mg/dL (0.2-1.3); Blood Urea Nitrogen 17 mg/dL (9-20); Calcium 9.2 mg/dL (8.4-10.2); Carbon Dioxide 28 mmol/L (22-30); Chloride 104 mmol/L (98-107); Estimated CRCL calculation 68 ml/min; Estimated Glomerular Filt Rate > 60; Glucose 122 mg/dL (65-110); Lipase 117 U/L (23-300); Sodium 141 mmol/L (137-145); Total Protein 7.2 g/dL (6.3-8.2)
[2025-02-24] MEDS: ONDANSETRON INJ 4 MG/2 ML VIAL IV PUSH (02:26)
[2025-02-24] MEDS: HYDROmorphone HCL INJ (*CRX) 2 MG/ML VIAL 1 MG IV PUSH (02:26)
[2025-02-24 02:29] LABS: Add Urine Microscopic? YES; Appearance Urine Cloudy (Clear); Bacteria Urine None Seen /hpf; Bilirubin Urine Negative (Negative); Blood Urine 3+ (Negative); Color Urine Dark Yellow (Yellow); Glucose Urine UA Negative (Negative); Ketones Urine Trace mg/dL (Negative); Leukocyte Esterase Ur Negative LEU/UL (Negative); Nitrate Urine Negative (Negative); Non Pathogenic Casts 0-2; Protein Urine Trace mg/dL (Negative); RBC Urine >100 /hpf (0-2); Specific Grav Ur 1.026 (1.001-1.035); Squamous Epithelial Cell Urine None Seen /hpf (Few); WBC Urine 0-5 /hpf (0-3); pH Urine 5.5 (5.0-9.0)
--- NOTE | 2025-02-24 02:33 | ED.GENADULT ---
HPI - General Adult General Chief complaint: Abdominal Pain Stated complaint: back pain Time Seen by Provider: 02/24/25 02:09 History of Present Illness HPI narrative: [age] old male presents to the emergency department for evaluation for intense left lower back left flank pain. Patient states the pain woke up approximately 130. Patient states the pain is sharp and does radiate to his left lower quadrant. Patient denies any prior history of kidney stone. Patient states the pain woken from sleep. Patient is in distress secondary to the pain and patient is writhing due to the pain Related Data Allergies Allergy/AdvReac Type Severity Reaction Status Date / Time No Known Allergies Allergy Verified 02/24/25 02:43 Review of Systems Review of Systems: All systems reviewed & are unremarkable except as noted in HPI and below PMFSH Past Medical History Medical History Eosinophilic esophagitis ADHD Neoplasm of left fibula GERD (gastroesophageal reflux disease) Surgical History Surgical History H/O vasectomy H/O hand surgery Family History Family History Father Alcoholism Mother Diabetes mellitus Sibling Asthma Social History Social History Smoking packs per day: 1 Smoking cigarettes per day: 20.0 Smoking status: Former smoker Tobacco type: cigarettes Second hand tobacco smoke exposure: No Smoking end date: 09/03/17 Alcohol intake: current Drinks per week: 1 Substance use: never Substance use type: does not use Do You Feel Safe in your Home?: Yes Lack of Transportation: No Lack of Food: Never True Current Housing: I Have Housing Concerned About Future Housing: No Difficulty Paying Gas/Electric Bills: No Difficulty Paying for Meds: No Currently Unemployed: No Difficulty w/ Childcare or Family Care: No Living arrangements: with family Occupation/Education: occupation Gender identity (if verbalized by the patient): Male Spiritual care concerns: No Agree to blood products: Yes Exam Narrative: APPEARANCE: Uncomfortable appearing HEAD: normocephalic, atraumatic. EYES: PERRLA/EOMI, conjunctivae clear. NOSE: Normal no drainage EARS:TMS clear with good light reflex. THROAT: Pharynx clear, no exudate. NECK: Supple. No adenopathy, no masses. RESPIRATORY: Airway patent, respirations nonlabored. Clear to auscultation bilaterally, no rales, rhonchi, wheezing. CARDIOVASCULAR: Regular rate and rhythm without murmurs rubs or gallops. ABDOMINAL: No reproducible left CVA, left lower back or left lower quadrant tenderness MUSCULOSKELETAL: Moves all extremities. Strength/ROM intact, No edema, No calf tenderness. NEURO: Alert. Cranial nerves II through XII intact. Good gait. Good coordination SKIN: Warm, dry. Normal Color Course Vital Signs Vital signs: Vital Signs Temperature 97.4 F L 02/24/25 01:51 Pulse Rate 02/24/25 01:51 Respiratory Rate 02/24/25 01:51 Blood Pressure 132/90 02/24/25 01:51 Pulse Oximetry 97 02/24/25 01:51 Oxygen Delivery Room Air 02/24/25 01:51 Temperature 97.8 F 02/24/25 01:52 Pulse Rate 02/24/25 01:52 Respiratory Rate 02/24/25 01:52 Blood Pressure 132/90 02/24/25 01:52 Pulse Oximetry 100 02/24/25 01:52 Oxygen Delivery Room Air 02/24/25 01:52 Medical Decision Making [facility] Narrative Medical decision making narrative: [age] old male presenting emergency department for evaluation for left flank pain. Patient is currently afebrile but does have a leukocytosis of 12.3 and hemoglobin 15.3. No significant abnormalities on the patient's CMP and UA was positive for blood but negative for infection. CT scan does show ureteral calculi. Re-evaluation patient reports he does feel improved. Will be provided nausea medication for home addition to Flomax and narcotic pain medication. Patient was updated on results of workup encouraged close follow-up with Urology. Patient was also educated on reasons to return to the emergency department Differential Diagnosis Differential Diagnosis: Ureteral calculi, urinary tract infection, appendicitis, colitis, diverticulitis Vital Signs Vital Signs: Vital Signs Temperature 97.4 F L 02/24/25 01:51 Pulse Rate 67 02/24/25 01:51 Respiratory Rate 02/24/25 01:51 Blood Pressure 132/90 02/24/25 01:51 Pulse Oximetry 97 06/24/25 01:51 Oxygen Delivery Room Air 02/24/25 01:51 Temperature 97.8 F 02/24/25 01:52 Pulse Rate 67 02/24/25 01:52 Respiratory Rate 20 02/24/25 01:52 Blood Pressure 132/90 02/24/25 01:52 Pulse Oximetry 100 02/24/25 01:52 Oxygen Delivery Room Air 02/24/25 01:52 Lab Data Lab results reviewed: Yes I reviewed the patient's lab results. 02/24/25 02:05 02/24/25 02:05 Labs: Lab Results 02/24/25 02/24/25 Range/Units 02:05 02:08 WBC 12.3 H (4.5-10.0) K/mm3 RBC 5.12 (4.6-6.20) M/mm3 Hgb 15.3 (14.0-18.0) g/dL Hct 47.3 (42.0-52.0) % MCV 92.4 (80-100) fl MCH 29.9 (26-34) pg MCHC 32.3 (32-36) g/dl RDW 13.2 (11.5-14.5) % Plt Count 302 (150-375) k/mm3 MPV 9.6 (7.4-10.4) fl Immature Gran % (Auto) 0.4 (0-0.5) % Neut % (Auto) 40.9 L (45.5-73.1) % Lymph % (Auto) 45.2 H (18.3-44.2) % [place] % (Auto) 8.1 (2.6-8.5) % Eos % (Auto) 4.4 (0-4.4) % Baso % (Auto) 1.0 (0.2-1.2) % Lymph # (Auto) 5.56 H (0.9-3.2) K/mm3 [place] # (Auto) 1.0 H (0.1-0.6) K/mm3 Eos # (Auto) 0.5 H (0-0.3) K/mm3 Baso # (Auto) 0.1 (0.0-0.1) K/mm3 Abs Immat Gran (auto) 0.05 H (0.00-0.031) K/mm3 Absolute Neuts (auto) 5.0 (1.3-6.7) K/mm3 Absolute Nucleated RBC 0.000 (0.0-0.012) K/mm3 Nucleated RBC % 0.0 (0.0-0.2) % Sodium 141 (137-145) mmol/L Potassium 4.0 (3.4-5.0) mmol/L Chloride 104 (98-107) mmol/L Carbon Dioxide 28 (22-30) mmol/L Anion Gap 9 (4-12) mmol/L BUN 17 (9-20) mg/dL Creatinine 1.29 (0.7-1.3) mg/dL Estim Creat Clear Calc 68 ml/min Estimated GFR > 60 (59 - ) Glucose 122 H (65-110) mg/dL Calcium 9.2 (8.4-10.2) mg/dL Total Bilirubin 0.6 (0.2-1.3) mg/dL AST 31 (17-59) U/L ALT 22 (6-50) U/L Alkaline Phosphatase 54 (38-126) U/L Total Protein 7.2 (6.3-8.2) g/dL Albumin 4.4 (3.5-5.1) g/dL Lipase 117 (23-300) U/L Urine Color Dark yellow (Yellow) Urine Appearance Cloudy H (Clear) Urine pH 5.5 (5.0-9.0) Ur Specific [place] 1.026 (1.001-1.035) Urine Protein Trace (Negative) mg/dL Urine Glucose (UA) Negative (Negative) mg/dL Urine Ketones Trace H (Negative) mg/dL Ur Blood (Man) 3+ H (Negative) Urine Nitrate Negative (Negative) Urine Bilirubin Negative (Negative) Urine Urobilinogen 1.0 (<2.0) mg/dL Leukocyte Esterase Rfl Negative (Negative) RHONDA/UL Urine RBC >100 H (0-2) /hpf Urine WBC 0-5 (0-3) /hpf Ur Squamous Epith Cells None seen (Few) /hpf Urine Bacteria None seen /hpf Urine Casts 0-2 Imaging Data Radiologist's impression: Overnight read CT abdomen pelvis without contrast impression: Obstructive grouping of 2 calculi within the proximal left ureter 2 x 3 x 9 mm in conglomerate. Associated with this is mild left renal hydronephrosis with mild left perinephric stranding. Normal appendix. No evidence of bowel obstruction. Contracted gallbladder. No other acute findings. Discharge Plan Discharge Clinical Impression: Calculi, ureter Patient Disposition: Home Condition: Stable Instructions: Antibiotic Form, Kidney Stones (ED), How to Strain Your Urine (ED) Additional Instructions: Ibuprofen for pain control. [place] as needed for additional pain control. Flomax to help you pass the stone. Zofran as needed for nausea control. Have close follow-up with your primary care physician have close follow-up with Urology. If you have any worsening symptoms including uncontrolled fever, inability to urinate or uncontrolled pain please call or return to the emergency department. Patient Language: Bolivian Prescriptions: New hydrocodone-acetaminophen 5-325 mg tablet 1 tablet PO Q12H PRN (Reason: pain) Qty: 14 0RF tamsulosin [Flomax] 0.4 mg capsule 0.4 mg PO DAILY 14 Days Qty: 14 0RF ondansetron 4 mg tablet,disintegrating 4 mg PO Q8H PRN (Reason: nausea and vomiting) Qty: 14 0RF No Action pantoprazole 40 mg tablet,delayed release (DR/EC) 40 mg PO QAM Qty: 30 3RF dextroamphetamine-amphetamine [Adderall XR] 10 mg capsule,extended release 24hr 10 mg PO DAILY Qty: 30 0RF Follow-up/Referrals: Phyllis Vyas MD [Primary Care Provider] - Del Lechuga MD [Physician] - Stand Alone Forms: Work/School Release IP
[2025-02-24] MEDS: Please add drug allergy info to patient profile. 1 EACH XX (02:44)
[2025-02-24] MEDS: KETOROLAC 15 MG/ML VIAL (*BKC) IV PUSH (05:14)
[2025-02-24] MEDS: TAMSULOSIN HCL 0.4 MG CAPSULE PO (05:14)
== END 2025-02-24 05:25 | disposition home or self-care (01) ==
PROVIDERS: Emergency Provider Emergency Medicine; PCP Family Medicine
DX: N13.2 Hydronephrosis with renal and ureteral calculous obstruction (principal); Z87.891 Personal history of nicotine dependence
CPT/HCPCS: 36415; 74176; 80053; 81001; 83690; 85025; 96374; 96375; 99284; A9270; J1171; J1885; J2405

== ENCOUNTER 2025-02-24 13:59 | Emergency (ER) | payer BC, SELFPAY ==
--- NOTE | ~2025-02-24 | XR_ITS ---
Exam: Abdomen 1V HISTORY: proximal left ureteral stone COMPARISON: Reference is made to CT examination of the abdomen and pelvis, performed approximately 90 minutes earlier. TECHNIQUE: Supine images of the abdomen FINDINGS: Bowel gas pattern is non-obstructive. There is no free air or deep sulci. The 2 mm left ureteral calculus is not visualized on the current study. A 4 mm fecalith is present within the left hemipelvis. IMPRESSION: Nonspecific, nonobstructive bowel gas pattern. Nonvisualization of the proximal left ureteral stone on plain film evaluation. Reviewed, dictated and finalized at location A.
[2025-02-24 14:15] VITALS: BP 142/65; PULSE 81; RESP 20; TEMP 36.6; O2SAT 100
--- NOTE | 2025-02-24 16:53 | ED.BACK ---
HPI - Back Pain/Injury General Chief Complaint: Back Pain/Injury Stated Complaint: kidney stones, worsening pain Time Seen by Provider: 02/24/25 16:46 History of Present Illness HPI Narrative: 34-year-old male presents to the emergency department with left flank pain. Patient was evaluated in our ED earlier this morning at 2:30 a.m. and diagnosed with a 2 mm left proximal ureteral stone with minimal fullness of the left renal collecting system. He was discharged home with [place], Flomax and Zofran. Patient states he took a [place] around noon today without improvement in his symptoms. Was later sitting on the couch and became diaphoretic due to the pain which prompted him to come to the ED. He does endorse nausea but no emesis. He has not taken his Zofran. He denies dysuria or fever. No prior history of kidney stones. Related Data Allergies Allergy/AdvReac Type Severity Reaction Status Date / Time No Known Allergies Allergy Verified 02/24/25 02:43 Review of Systems Review of Systems: All systems reviewed & are unremarkable except as noted in HPI and below PMFSH Past Medical History Medical History Eosinophilic esophagitis ADHD Neoplasm of left fibula GERD (gastroesophageal reflux disease) Surgical History Surgical History H/O vasectomy H/O hand surgery Family History Family History Father Alcoholism Mother Diabetes mellitus Sibling Asthma Social History Social History Smoking packs per day: 1 Smoking cigarettes per day: 20.0 Smoking status: Former smoker Tobacco type: cigarettes Second hand tobacco smoke exposure: No Smoking end date: 09/03/17 Alcohol intake: current Drinks per week: 1 Substance use: never Substance use type: does not use Do You Feel Safe in your Home?: Yes Lack of Transportation: No Lack of Food: Never True Current Housing: I Have Housing Concerned About Future Housing: No Difficulty Paying Gas/Electric Bills: No Difficulty Paying for Meds: No Currently Unemployed: No Difficulty w/ Childcare or Family Care: No Living arrangements: with family Occupation/Education: occupation Gender identity (if verbalized by the patient): Male Spiritual care concerns: No Agree to blood products: Yes Exam Narrative: GENERAL: Well-appearing, well-nourished, and in no acute distress. HEAD: Normocephalic, atraumatic. EYES: EOMI. ENT: Nares clear, no rhinorrhea or epistaxis. Mucous membranes moist. NECK: Supple. CHEST: Clear to auscultation. No respiratory distress. HEART: Regular rate and rhythm. No murmur heard. Normal peripheral pulses. ABDOMEN: Soft, nontender, nondistended, normal active bowel sounds. No rebound, guarding or rigidity. Left-sided CVA tenderness EXTREMITIES: Normal range of motion. No edema. SKIN: Warm, dry, no rash. NEURO: No focal deficits. Alert and oriented x3 Course Vital Signs Vital signs: Vital Signs Temperature 97.9 F 02/24/25 14:15 Pulse Rate 81 02/24/25 14:15 Respiratory Rate 20 02/24/25 14:15 Blood Pressure 142/65 H 02/24/25 14:15 Pulse Oximetry 100 02/24/25 14:15 Oxygen Delivery Room Air 02/24/25 14:15 Temperature 97.9 F 02/24/25 14:15 Pulse Rate 81 02/24/25 14:15 Respiratory Rate 20 02/24/25 14:15 Blood Pressure 142/65 H 02/24/25 14:15 Pulse Oximetry 100 02/24/25 14:15 Oxygen Delivery Room Air 02/24/25 14:15 MDM - Back Pain/Injury MDM Narrative Medical decision making narrative: 34-year-old male with recent diagnosis of left 2 mm proximal ureteral stone this morning at 2:30 a.m. presents to emergency department for intractable pain despite use of [place] at home. Vitals are stable. Patient is afebrile and nontoxic appearing. Exam is significant for the above. Will obtain lab work and KUB. Patient provided with morphine and Zofran for pain control. CBC with improving leukocytosis to 11.9, was 12.3 this morning. Chemistries with a creatinine of 1.32, was previously 1.29 this morning. KUB shows nonspecific nonobstructive bowel gas pattern with nonvisualization of the proximal left ureteral stone on plain film. UA reviewed from this morning which showed a large amount of hematuria, no white blood cells or leuk esterase, no nitrites or bacteria. Patient re-evaluated. Reports improvement in nausea, still having pain despite morphine. Will provide Dilaudid and fluids. Discussed presentation and findings with urologist, Dr. Ford, who advises to try Toradol for pain control given patient is likely not a candidate for shockwave lithotripsy given small size of stone. States if patient's pain improves with Toradol and would like to go home, he can be discharged home with prescription for Toradol 10 mg q.6 x3 days with 1 refill and follow-up outpatient. If patient continues to have intractable pain, he agrees to admission and consult. Patient re-evaluated after Toradol and states he feels much better and would like to go home. Will provide a script for Toradol. Advised follow-up closely with Urology. Discussed strict ED return precautions. He is agreeable with the plan verbalized understanding. Discharged in stable condition. Lab Data 02/24/25 17:19 02/24/25 17:19 Labs: Lab Results 02/24/25 Range/Units 17:19 WBC 11.9 H (4.5-10.0) K/mm3 RBC 5.03 (4.6-6.20) M/mm3 Hgb 15.4 (14.0-18.0) g/dL Hct 46.0 (42.0-52.0) % MCV 91.5 (80-100) fl MCH 30.6 (26-34) pg MCHC 33.5 (32-36) g/dl RDW 12.8 (11.5-14.5) % Plt Count 279 (150-375) k/mm3 MPV 9.7 (7.4-10.4) fl Immature Gran % (Auto) 0.4 (0-0.5) % Neut % (Auto) 77.8 H (45.5-73.1) % Lymph % (Auto) 13.8 L (18.3-44.2) % [place] % (Auto) 6.8 (2.6-8.5) % Eos % (Auto) 0.7 (0-4.4) % Baso % (Auto) 0.5 (0.2-1.2) % Lymph # (Auto) 1.64 (0.9-3.2) K/mm3 [place] # (Auto) 0.8 H (0.1-0.6) K/mm3 Eos # (Auto) 0.1 (0-0.3) K/mm3 Baso # (Auto) 0.1 (0.0-0.1) K/mm3 Abs Immat Gran (auto) 0.05 H (0.00-0.031) K/mm3 Absolute Neuts (auto) 9.3 H (1.3-6.7) K/mm3 Absolute Nucleated RBC 0.000 (0.0-0.012) K/mm3 Nucleated RBC % 0.0 (0.0-0.2) % Sodium 136 L (137-145) mmol/L Potassium 3.7 (3.4-5.0) mmol/L Chloride 104 (98-107) mmol/L Carbon Dioxide 23 (22-30) mmol/L Anion Gap 9 (4-12) mmol/L BUN 17 (9-20) mg/dL Creatinine 1.32 H (0.7-1.3) mg/dL Estim Creat Clear Calc 66 ml/min Estimated GFR > 60 (59 - ) Glucose 104 (65-110) mg/dL Calcium 9.2 (8.4-10.2) mg/dL Total Bilirubin 0.8 (0.2-1.3) mg/dL AST 29 (17-59) U/L ALT 21 (6-50) U/L Alkaline Phosphatase 51 (38-126) U/L Total Protein 7.2 (6.3-8.2) g/dL Albumin 4.3 (3.5-5.1) g/dL Discharge Plan Discharge Clinical Impression: Left ureteral stone Patient Disposition: Home Condition: Stable Instructions: Antibiotic Form, Kidney Stones (ED) Additional Instructions: You were evaluated in the emergency department for kidney stone pain. Please take the Toradol as prescribed. You can take this in addition to hydrocodone. Continue taking the Flomax. Take Zofran as needed for nausea. Follow-up closely with the urologist. Return to the emergency department if you develop worsening pain, fever, you are unable to urinate, you are unable to tolerate food or fluids, or other concerning symptoms. Patient Language: Ukrainian Prescriptions: New ketorolac 10 mg tablet 10 mg PO Q6H PRN (Reason: pain) 3 Days Qty: 12 1RF Rx Instructions: maximum total duration of 5 days from all oral, intranasal, or parenteral formulations No Action hydrocodone-acetaminophen 5-325 mg tablet 1 tablet PO Q12H PRN (Reason: pain) Qty: 14 0RF tamsulosin [Flomax] 0.4 mg capsule 0.4 mg PO DAILY 14 Days Qty: 14 0RF ondansetron 4 mg tablet,disintegrating 4 mg PO Q8H PRN (Reason: nausea and vomiting) Qty: 14 0RF pantoprazole 40 mg tablet,delayed release (DR/EC) 40 mg PO QAM Qty: 30 3RF dextroamphetamine-amphetamine [Adderall XR] 10 mg capsule,extended release 24hr 10 mg PO DAILY Qty: 30 0RF Follow-up/Referrals: Torres Ford MD [Physician] - Phyllis Vyas MD [Primary Care Provider] -
[2025-02-24] MEDS: MORPHINE SULFATE (*CRX) 4 MG/ML INJ IV PUSH (17:16)
[2025-02-24] MEDS: ONDANSETRON INJ 4 MG/2 ML VIAL IV PUSH (17:17)
[2025-02-24 17:26] LABS: Basophils Absolute Auto 0.1 K/mm3 (0.0-0.1); Basophils Percent Auto 0.5 % (0.2-1.2); Eosinophils Absolute Auto 0.1 K/mm3 (0-0.3); Eosinophils Percent Auto 0.7 % (0-4.4); Hemoglobin 15.4 g/dL (14.0-18.0); Immature Granulocyte Absolute 0.05 K/mm3 (0.00-0.031); Immature Granulocyte Percent A 0.4 % (0-0.5); Lymphocytes Absolute Auto 1.64 K/mm3 (0.9-3.2); Lymphocytes Percent Auto 13.8 % (18.3-44.2); Mean Corpuscular HGB Conc 33.5 g/dl (32-36); Mean Corpuscular Hemoglobin 30.6 pg (26-34); Mean Corpuscular Volume 91.5 fl (80-100); Mean Platelet Volume 9.7 fl (7.4-10.4); Monocytes Absolute Auto 0.8 K/mm3 (0.1-0.6); Monocytes Percent Auto 6.8 % (2.6-8.5); Neutrophils Absolute Auto 9.3 K/mm3 (1.3-6.7); Neutrophils Percent Auto 77.8 % (45.5-73.1); Platelet Count Result 279 k/mm3 (150-375); Red Blood Count 5.03 M/mm3 (4.6-6.20); Red Cell Distribution Width 12.8 % (11.5-14.5); White Blood Count 11.9 K/mm3 (4.5-10.0)
[2025-02-24 17:38] LABS: Alanine Aminotransferase 21 U/L (6-50); Albumin Level 4.3 g/dL (3.5-5.1); Alkaline Phosphatase 51 U/L (38-126); Anion Gap 9 mmol/L (4-12); Aspartate Amino Transferase 29 U/L (17-59); Bilirubin,Total 0.8 mg/dL (0.2-1.3); Blood Urea Nitrogen 17 mg/dL (9-20); Calcium 9.2 mg/dL (8.4-10.2); Carbon Dioxide 23 mmol/L (22-30); Chloride 104 mmol/L (98-107); Estimated CRCL calculation 66 ml/min; Estimated Glomerular Filt Rate > 60; Glucose 104 mg/dL (65-110); Potassium 3.7 mmol/L (3.4-5.0); Sodium 136 mmol/L (137-145); Total Protein 7.2 g/dL (6.3-8.2)
[2025-02-24] MEDS: HYDROmorphone HCL INJ (*CRX) 2 MG/ML VIAL 0.5 MG IV PUSH (18:26)
[2025-02-24] MEDS: SODIUM CHLORIDE 0.9% IV 1,000 ML 999 ML IV CONT (18:26)
[2025-02-24] MEDS: KETOROLAC 30 MG/ML VIAL (*BKC) IV PUSH (18:26)
[2025-02-24 19:11] VITALS: BP 130/81; PULSE 80; RESP 18; O2SAT 99
== END 2025-02-24 19:13 | disposition home or self-care (01) ==
PROVIDERS: Emergency Provider Physician Assistant; PCP Family Medicine
DX: N20.1 Calculus of ureter (principal); K21.9 Gastro-esophageal reflux disease without esophagitis; F90.9 Attention-deficit hyperactivity disorder, unspecified type; Z87.891 Personal history of nicotine dependence; Z79.899 Other long term (current) drug therapy
CPT/HCPCS: 36415; 74018; 80053; 85025; 96361; 96374; 96375; 99284; J1171; J1885; J2270; J2405; J7030

== ENCOUNTER 2025-03-05 08:40 | Outpatient (CLI) | payer BC, SELFPAY ==
--- OUTSIDE RECORDS SUMMARY | 2025-03-05 08:44 | XMS_ITS | Referral Summary ---
Author Organization [facility] Address [address] [place] [phone] Care Team Providers Care Loan Expeditor Name Role Phone Phyllis Vyas MD Primary Care Provider [phone] Allergies No known active allergies Medications dextroamphetami ne-amphetamine XR (ADDERALL XR) 10 mg 24 hr capsule Take 1 capsule (10 mg total) by mouth daily 10/03/2023 Active Active Problems No known active problems Social History Tobacco Use Types Packs/Day Years Used Date Smoking Tobacco: Former Cigarettes Tobacco Cessation:Counseling Given: Not Answered Personal Safety Answer Date Recorded Getting School Help Needed Not on file 09/19 Sex and Gender Information Value Date Recorded Sex Assigned at Not on file 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 Gender Identity Not on file Sexual Orientation Not on file Last Filed Vital Signs Vital Sign Reading Time Taken Comments Blood Pressure - - Pulse - - Temperature - - Respiratory Rate - - Oxygen Saturation - - Inhaled Oxygen Concentration - - Weight 87.5 kg (193 lb) 10/09/2023 10:25 AM SYSTEMS PLANNER Height 170.2 cm (5' 7) 10/09/2023 10:25 AM SYSTEMS PLANNER Body Mass Index 30.23 10/09/2023 10:25 AM SYSTEMS PLANNER Plan of Treatment Not on file Insurance BLUE [facility] CHOICE [place] [address] WORKERS COMPENSATION GENERIC Care Teams Loan Expeditor Relationship Specialty Start Date End Date Phyllis Vyas MD PCP - General Family Medicine 10/09/23
--- OUTSIDE RECORDS SUMMARY | 2025-03-05 08:44 | XMS_ITS | Clinical Summary ---
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 Gender Identity Not on file Sexual Orientation Not on file Obstetrics History Last Filed Vital Signs Vital Sign Reading Time Taken Comments Blood Pressure - - Pulse - - Temperature - - Respiratory Rate - - Oxygen Saturation - - Inhaled Oxygen Concentration - - Weight 87.5 kg (193 lb) 10/09/2023 10:25 AM TALLOW REFINER Height 170.2 cm (5' 7) 10/09/2023 10:25 AM TALLOW REFINER Body Mass Index 30.23 10/09/2023 10:25 AM TALLOW REFINER Plan of Treatment Health Maintenance Due Date Last Done Comments Depression Screening 1990 Hepatitis C Screening 1990 DTaP/Tdap/Td Vaccine (5 - Tdap) 2001 05/15/1996, 03/02/1992, 05/21/1991, Additional history exists Varicella Vaccines (1 of 2 - 13+ 2-dose series) 2003 Regular Well Visit/Exam 18-64 2008 Influenza Vaccine (Season Ended) 2025 Hepatitis B Screening Completed 06/18/2001 , 07/24/2000, 06/19/2000 HPV Vaccines Aged Out No longer eligi ble based on patient's age to complete this topic Pneumococcal vaccine <65 Aged Out No longer eligible based on patient's age to complete this topic Insurance BLUE [facility] CHOICE OOS [facility] WORKERS COMPENSATION GENERIC Care Teams Transfer Table Operator Relationship Specialty Start Date End Date Phyllis Vyas MD PCP - General Family Medicine 10/09/23
[2025-03-05 09:17] LABS: Hematocrit 49.9 % (42.0-52.0); Hemoglobin 16.6 g/dL (14.0-18.0); Immature Granulocyte Percent A 0.5 % (0-0.5); Lymphocytes Absolute Auto 2.96 K/mm3 (0.9-3.2); Mean Corpuscular HGB Conc 33.3 g/dl (32-36); Mean Corpuscular Hemoglobin 30.7 pg (26-34); Mean Corpuscular Volume 92.4 fl (80-100); Nucleated Red Blood Cells Absolute Auto 0.000 K/mm3 (0.0-0.012); Nucleated Red Blood Cells Perc 0.0 % (0.0-0.2); Platelet Count Result 307 k/mm3 (150-375); Red Blood Count 5.40 M/mm3 (4.6-6.20); White Blood Count 6.6 K/mm3 (4.5-10.0)
[2025-03-05 09:30] LABS: Alanine Aminotransferase 28 U/L (6-50); Albumin Level 4.4 g/dL (3.5-5.1); Alkaline Phosphatase 46 U/L (38-126); Anion Gap 11 mmol/L (4-12); Aspartate Amino Transferase 33 U/L (17-59); Bilirubin,Total 1.0 mg/dL (0.2-1.3); Blood Urea Nitrogen 19 mg/dL (9-20); Calcium 9.4 mg/dL (8.4-10.2); Carbon Dioxide 24 mmol/L (22-30); Chloride 105 mmol/L (98-107); Estimated Glomerular Filt Rate > 60; Glucose 93 mg/dL (65-110); Iron 190 ug/dL (49-181); Magnesium 2.1 mg/dL (1.6-2.3); Potassium 3.9 mmol/L (3.4-5.0); Sodium 140 mmol/L (137-145); Total Protein 7.5 g/dL (6.3-8.2)
[2025-03-05 09:55] LABS: Percent Iron Saturation 44 % (20-50)
[2025-03-05 10:10] LABS: Thyroid Stimulating Hormone Reflex 1.310 uIU/mL (0.465-4.68)
[2025-03-05 10:13] LABS: Ferritin 25.40 ng/mL (17.9-464)
[2025-03-05 10:27] LABS: Vitamin B12 693.0 pg/mL (239-931)
[2025-03-05 10:30] LABS: Hemoglobin A1C 5.6 % (<5.7)
== END 2025-03-05 08:41 | disposition home or self-care (01) ==
LOC: ANHLAB 08:41
PROVIDERS: PCP Family Medicine; Visit Provider Family Medicine
DX: R73.03 Prediabetes (principal); D50.9 Iron deficiency anemia, unspecified; E53.8 Deficiency of other specified B group vitamins; R53.83 Other fatigue; M79.10 Myalgia, unspecified site
CPT/HCPCS: 36415; 80053; 82607; 82728; 83036; 83540; 83550; 83735; 84443; 85025; 85652; 86038; 86039; 86430

== ENCOUNTER 2025-05-27 09:00 | Outpatient (CLI) | payer BC, SELFPAY ==
--- NOTE | 2025-05-27 09:20 | NEURO_ITS ---
Impression: Non-diabetic complains of spasms in upper extremities. # Subtle evolving left Carpal Tunnel Syndrome. # Needle/ EMG exam revealed no myotonia or fibrillations. # Clinical correlation recommended. Nerve Conduction Studies ?Stim Site NR Peak (ms) P-T Amp (?V) Site1 Site2 Delta-P (ms) Dist (cm) Aryan (m/s) Left Median Anti Sensory (2-3nd Digit) Wrist ? 3.2 22.9 Wrist 2-3nd Digit 3.2 14.0 44 Wrist ? 3.1 21.5 Wrist 2-3nd Digit 3.2 14.0 44 Right Median Anti Sensory (2-3nd Digit) Wrist ? 2.8 19.8 Wrist 2-3nd Digit 2.8 14.0 50 Wrist ? 2.8 21.6 Wrist 2-3nd Digit 2.8 14.0 50 Left Radial Anti Sensory (Base 1st Digit) Wrist ? 2.4 20.1 Wrist Base 1st Digit 2.4 0.0 Right Radial Anti Sensory (Base 1st Digit) Wrist ? 2.3 18.4 Wrist Base 1st Digit 2.3 0.0 Left Ulnar Anti Sensory (5th Digit) Wrist ? 2.6 14.5 Wrist 5th Digit 2.6 14.0 54 Right Ulnar Anti Sensory (5th Digit) Wrist ? 3.5 10.9 Wrist 5th Digit 3.5 14.0 40 ?Stim Site NR Onset (ms) O-P Amp (mV) Site1 Site2 Delta-0 (ms) Dist (cm) Aryan (m/s) Left Median Motor (Abd Poll Brev) Wrist ? 4.2 1.7 Elbow Wrist 4.4 26.0 59 Elbow ? 8.6 3.5 Right Median Motor (Abd Poll Brev) Wrist ? 3.4 5.3 Elbow Wrist 4.6 28.0 61 Elbow ? 8.0 5.0 Left Ulnar Motor (Abd Dig Minimi) Wrist ? 2.7 6.3 A Elbow Wrist 5.0 28.0 56 A Elbow ? 7.7 6.0 B Elbow Wrist 3.9 21.0 54 B Elbow ? 6.6 5.8 Right Ulnar Motor (Abd Dig Minimi) Wrist ? 2.8 8.1 A Elbow Wrist 5.2 29.0 56 A Elbow ? 8.0 8.6 B Elbow Wrist 3.9 21.0 54 B Elbow ? 6.7 4.6 F Wave Studies ?NR F-Lat (ms) L-R F-Lat (ms) Left Median (Mrkrs) (Abd Poll Brev) ? 25.37 0.70 Right Median (Mrkrs) (Abd Poll Brev) ? 26.08 0.70 Left Ulnar (Mrkrs) (Abd Dig Min) ? 26.33 0.63 Right Ulnar (Mrkrs) (Abd Dig Min) ? 26.95 0.63 Electromyography ?Side Muscle Nerve Root Ins Act Fibs Amp Dur Recrt Comment Right 1stDorInt Ulnar C8-T1 Nml Nml Nml Nml Nml Right Ext Indicis Radial (Post Int) C7-8 Nml Nml Nml Nml Nml Right Ext Digitorum Radial (Post Int) C7-8 Nml Nml Nml Nml Nml Right BrachioRad Radial C5-6 Nml Nml Nml Nml Nml Right PronatorTeres Median C6-7 Nml Nml Nml Nml Nml Right Abd Poll Brev Median C8-T1 Nml Nml Nml Nml Nml Right ABD Dig Min Ulnar C8-T1 Nml Nml Nml Nml Nml Right FlexPolLong Median (Ant Int) C7-8 Nml Nml Nml Nml Nml Right Abd Poll Long Radial (Post Int) C7-8 Nml Nml Nml Nml Nml Left 1stDorInt Ulnar C8-T1 Nml Nml Nml Nml Nml Left Ext Indicis Radial (Post Int) C7-8 Nml Nml Nml Nml Nml Left Ext Digitorum Radial (Post Int) C7-8 Nml Nml Nml Nml Nml Left BrachioRad Radial C5-6 Nml Nml Nml Nml Nml Left PronatorTeres Median C6-7 Nml Nml Nml Nml Nml Left Abd Poll Brev Median C8-T1 Nml Nml Nml Nml Nml Left ABD Dig Min Ulnar C8-T1 Nml Nml Nml Nml Nml Left FlexPolLong Median (Ant Int) C7-8 Nml Nml Nml Nml Nml Left Abd Poll Long Radial (Post Int) C7-8 Nml Nml Nml Nml Nml
--- OUTSIDE RECORDS SUMMARY | 2025-05-27 09:34 | XMS_ITS | Clinical Summary ---
Author Organization [facility] [employer] Address [address] [place] [address] Care Team Providers Care Residential Property Tax Appraiser Name Role Phone Tia Stone MD Primary Care Provider + Source Comments [facility] [employer],non-owned Affiliates and Associated Physician Practices is amultiple site organization consisting of ambulatory clinics and hospital sitesin [place], [place], [place] and [place]. This disclosure is being madepursuant to the Care Everywhere program and may not contain all information available regarding this patient. Last updated 18.[facility] [employer] Allergies Active Allergy Reactions Criticality Noted Date Comments Hydrocodone-Acetaminophen Itching Low 03/30/2017 Medications * Be aware that medications may not be up to date on this document. Alwaysverify current medications with the patient. 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 Gender Identity Not on file Sexual Orientation Not on file Last Filed Vital Signs Vital Sign Reading Time Taken Comments Blood Pressure 135/90 03/30/2017 10:26 PM CDT Pulse 82 03/30/2017 10:26 PM CDT Temperature 36.7 C (98 F) 03/30/2017 7:02 PM CDT Respiratory Rate 16 03/30/2017 10:26 PM CDT Oxygen Saturation 98% 03/30/2017 10:26 PM CDT Inhaled Oxygen Concentration - - Weight 72.6 kg (160 lb) 03/30/2017 7:02 PM CDT Height 167.6 cm (5' 6) 03/30/2017 7:02 PM CDT Body Mass Index 25.82 03/30/2017 7:02 PM CDT Plan of Treatment Health Maintenance Due Date Last Done Comments HIV SCREENING 2005 HEPATITIS C SCREENING 09/17/2008 DTAP/TDAP/TD VACCINES (1 - Tdap) 2009 HEPATITIS B VACCINE (1 of 3 - 19+ 3-dose series) 2009 PNEUMOCOCCAL VACCINE (1 of 2 - PCV) 2009 HPV VACCINE (1 - 3-dose SCDM series) 2017 DEPRESSION SCREENING 09/03/2024 COVID-19 VACCINE (1 - 2023-2 5 season) 2025 INFLUENZA VACCINE (#1) 2025 ZOSTER VACCINE (1 of 2) 2040 HIB VACCINE Aged Out No longer eligi ble based on patient's age to complete this topic MENINGOCOCCAL (Group B) VACC INE SHARED DECISION-MAKING Aged Out No longer eligibl e based on patient's age to complete this topic MENINGOCOCCAL GROUPS A/C/Y/W VACCINE Aged Out No longer eligible b ased on patient's age to complete this topic Insurance * Guarantor: ELGIN GONZALEZ Type Relation to Patient Date of Phone Billing Address Personal/Family [address] [place], [place] [address] [place] [address] [facility] Address: [facility] [id number] [place] [address] SELF PAY NO INSURANCE Member Subscriber Plan / Payer (Ef fective for All Dates) Name:Elgin Gonzalez Member ID:Not on file Relation to Subscriber:Not on file Name:ELGIN GONZALEZ Subscriber ID:Not on file Address: [address] [place], [place] [address] [address] Payer ID:Not on file Group ID:Not on file Type:Self Pay Address: [place], [place] * Guarantor: ELGIN GONZALEZ Account Type Relation to Patient Date of Phone Billing Address Personal/Family [address] [place] [address] [place] [address] [facility] SELF PAY NO INSURANCE Member Subscriber Plan / Payer (Ef fective for All Dates) Name:Elgin Gonzalez Member ID:Not on file Relation to Subscriber:Not on file Name:ELGIN GONZALEZ Subscriber ID:Not on file Address: [address] [place] [address] [place] [address] Payer ID:Not on file Group ID:Not on file Type:Self Pay Address: [place], [place] * Guarantor: ELGIN GONZALEZ Account Type Relation to Patient Date of Phone Billing Address Personal/Family [address] [place] [address] [facility] SELF PAY NO INSURANCE Member Subscriber Plan / Payer (Ef fective for All Dates) Name:Elgin Gonzalez Member ID:Not on file Relation to Subscriber:Not on file Name:ELGIN GONZALEZ Subscriber ID:Not on file Address: [address] [place] [address] [place] [address] Payer ID:Not on file Group ID:Not on file Type:Self Pay Address: [place], [place] Care Teams Residential Property Tax Appraiser Relationship Specialty Start Date End Date Tia Stone MD [address] [place], [place] [id number] PCP - General 05/31/09
--- OUTSIDE RECORDS SUMMARY | 2025-05-27 09:34 | XMS_ITS | Clinical Summary ---
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 Gender Identity Not on file Sexual Orientation Not on file Obstetrics History Last Filed Vital Signs Vital Sign Reading Time Taken Comments Blood Pressure - - Pulse - - Temperature - - Respiratory Rate - - Oxygen Saturation - - Inhaled Oxygen Concentration - - Weight 87.5 kg (193 lb) 10/09/2023 10:25 AM AUTO PARTS SALESPERSON Height 170.2 cm (5' 7) 10/09/2023 10:25 AM AUTO PARTS SALESPERSON Body Mass Index 30.23 10/09/2023 10:25 AM AUTO PARTS SALESPERSON Plan of Treatment Health Maintenance Due Date Last Done Comments Depression Screening 1990 Hepatitis C Screening 1990 DTaP/Tdap/Td Vaccine (5 - Tdap) 2001 05/15/1996, 03/02/1992, 05/21/1991, Additional history exists Varicella Vaccines (1 of 2 - 13+ 2-dose series) 2003 Regular Well Visit/Exam 18-64 2008 HPV Vaccines (1 - 3-dose SCDM series) 2017 Influenza Vaccine (#1) 2025 Hepatitis B Screening Completed 06/18/2001 , 07/24/2000, 06/19/2000 Pneumococcal vaccine <65 Aged Out No longer eligible based on patient's age to complete this topic Insurance BLUE [facility] CHOICE OOS [facility] WORKERS COMPENSATION GENERIC Care Teams Nba Player Relationship Specialty Start Date End Date Phyllis Vyas MD PCP - General Family Medicine 10/09/23
== END 2025-05-27 09:01 | disposition home or self-care (01) ==
PROVIDERS: PCP Family Medicine; Visit Provider Family Medicine
DX: G56.02 Carpal tunnel syndrome, left upper limb (principal)
CPT/HCPCS: 95886; 95911

== ENCOUNTER 2025-06-30 18:29 | Emergency (ER) | payer BC, SELFPAY ==
--- NOTE | ~2025-06-30 | CT_ITS ---
CT HEAD NON-CONTRAST Clinical History: new headache Comparison: None Technique: Unenhanced axial images skull base to vertex Coronal, sagittal reformats CT images acquired with automatic exposure control for dose reduction DLP: 681 mGy-cm Findings: Sulci, ventricles: Unremarkable. No intracerebral hemorrhage. No evidence acute territorial infarct. No mass effect, midline shift. Bony calvarium intact. Visualized paranasal sinuses: Clear. Mastoid air cells: Clear. IMPRESSION: 1. No acute intracranial findings. Reviewed, dictated and finalized at location R.
[2025-06-30 18:30] VITALS: BP 137/85; PULSE 68; RESP 16; TEMP 36.9; O2SAT 99
--- OUTSIDE RECORDS SUMMARY | 2025-06-30 18:31 | XMS_ITS | Clinical Summary ---
Author Organization [facility] [employer] Address [address] [facility] [place] [address] Care Team Providers Care Fleet Director Name Role Phone Tia Stone MD Primary Care Provider + Source Comments [facility] [employer],non-owned Affiliates and Associated Physician Practices is amultiple site organization consisting of ambulatory clinics and hospital sitesin [place], [place], [place] and [place]. This disclosure is being madepursuant to the Care Everywhere program and may not contain all informatio navailable regarding this patient. 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 Gender Identity Not on file Sexual Orientation [...] Patient Date of Phone Billing Address Personal/Family [address] [place], [place] [address] [place] [address] [facility] SELF PAY NO INSURANCE Member Subscriber Plan / Payer (Ef fective for All Dates) Name:Elgin Gonzalez Member ID:Not on file Relation to Subscriber:Not on file Name:ELGIN GONZALEZ Subscriber ID:Not on file Address: [address] [place] [address] Payer ID:Not on file Group ID:Not on file Type:Self Pay Address: [place], [place] * Guarantor: ELGIN GONZALEZ Account Type Relation to Patient Date of Phone Billing Address Personal/Family [address] [place] [address] [facility] SELF PAY NO INSURANCE Member Subscriber Plan / Payer (Ef fective for All Dates) Name:Elgin Gonzalez Member ID:Not on file Relation to Subscriber:Not on file Name:ELGIN GONZALEZ Subscriber ID:Not on file Address: [facility] [address] [address] Payer ID:Not on file Group ID:Not on file Type:Self Pay Address: [place], [place] * Guarantor: ELGIN GONZALEZ Account Type Relation to Patient Date of Phone Billing Address Personal/Family [address] [place] [address] [facility] SELF PAY NO INSURANCE Member Subscriber Plan / Payer (Ef fective for All Dates) Name:Elgin Gonzalez Member ID:Not on file Relation to Subscriber:Not on file Name:ELGIN GONZALEZ Subscriber ID:Not on file Address: [address] [place] [address] [place] [address] Payer ID:Not on file Group ID:Not on file Type:Self Pay Address: [place], [place] Care Teams Fleet Director Relationship Specialty Start Date End Date Tia Stone MD [address] [place] [address] PCP - General 05/31/09
--- NOTE | 2025-06-30 20:55 | ED.HA ---
HPI - Headache General Chief Complaint: Headache Stated Complaint: HEADACHE/MIGRAINE Time Seen by Provider: 06/30/25 20:26 Source: patient Mode of arrival: ambulatory Limitations: no limitations History of Present Illness HPI Narrative: This is a 34-year-old male with history of iron deficiency anemia, ADHD who presents to the ED for occipital headache. Patient states that for the past few days he has been having a occipital headache. He saw his PCP for this yesterday and was given a shot of Toradol with temporary improvement of his symptoms. He states that it came back today his PCP told him to come to the ED if his symptoms returned. He denies any changes in vision. He has had some issues with balance when the headache is worse. Denies weight loss, fevers, chills, Numbness, tingling, weakness. Related Data Allergies Allergy/AdvReac Type Severity Reaction Status Date / Time No Known Allergies Allergy Verified 06/30/25 18:35 Review of Systems Review of Systems: Gen.: Denies fevers or chills Eyes: Denies eye pain or visual change ENT: Denies congestion Respiratory: Denies shortness of breath or cough CV: Denies chest pain or palpitations GI: Denies abdominal pain nausea, emesis or diarrhea denies burning, urgency, frequency or hematuria Musculoskeletal: Denies back pain or muscle pain Neuro: Denies numbness, tingling, weakness or focal weakness Skin: Denies rash Except as documented, all other systems reviewed and negative PMFSH Past Medical History Medical History Eosinophilic esophagitis ADHD Neoplasm of left fibula GERD (gastroesophageal reflux disease) Surgical History Surgical History H/O vasectomy H/O hand surgery Family History Family History Father Alcoholism Mother Diabetes mellitus Sibling Asthma Social History Social History Smoking packs per day: 1 Smoking cigarettes per day: 20.0 Smoking status: Former smoker Tobacco type: cigarettes Second hand tobacco smoke exposure: No Smoking end date: 09/03/17 Alcohol intake: current Drinks per week: 1 Substance use: never Substance use type: does not use Do You Feel Safe in your Home?: Yes Lack of Transportation: No Lack of Food: Never True Current Housing: I Have Housing Concerned About Future Housing: No Difficulty Paying Gas/Electric Bills: No Difficulty Paying for Meds: No Currently Unemployed: No Difficulty w/ Childcare or Family Care: No Living arrangements: with family Occupation/Education: occupation Gender identity (if verbalized by the patient): Male Spiritual care concerns: No Agree to blood products: Yes Exam Narrative: APPEARANCE: No acute distress, nontoxic, resting in bed EYES: EOMI HEENT: Normocephalic, atraumatic, OMM RESPIRATORY: No respiratory distress Clear to auscultation bilaterally with no rhonchi wheezing or rales. CARDIOVASCULAR: Regular rate and rhythm without murmurs rubs or gallops. ABDOMINAL: Soft, nontender, nondistended, no rebound or guarding MUSCULOSKELETAl: Moves all extremities. No clubbing, cyanosis or edema. NEURO: Awake and alert. Following commands, speech normal, no focal deficits. NIHSS 0 SKIN:: Warm, dry. No rashes lesions or abrasions PSYCHIATRIC: Normal affect/mood, Course Vital Signs Vital signs: Vital Signs Temperature 98.4 F 06/30/25 18:30 Pulse Rate 68 06/30/25 18:30 Respiratory Rate 16 06/30/25 18:30 Blood Pressure 137/85 06/30/25 18:30 Pulse Oximetry 99 06/30/25 18:30 Oxygen Delivery Room Air 06/30/25 18:30 Temperature 96.8 F L 06/30/25 23:32 Pulse Rate 78 06/30/25 23:32 Respiratory Rate 18 06/30/25 23:32 Blood Pressure 117/80 06/30/25 23:32 Pulse Oximetry 99 06/30/25 23:32 Oxygen Delivery Room Air 06/30/25 18:30 MDM - Headache MDM Narrative Medical decision making narrative: 34-year-old male Presenting for headache. On initial evaluation patient was in no acute distress afebrile, hemodynamic stable. Differentials include but are not limited to: Migraine, tension headache, mass, electrolyte abnormality, ICH Notable exam findings: Nonfocal neuro exam. No dysdiadochokinesia Notable imaging findings: CT head without acute abnormalities Patient was given Decadron, Compazine, Benadryl. Toradol was held until CT head results. As CT head was negative he was given Toradol. On re-evaluation, he had near resolution of his headache. Suspect this is a tension headache given the involvement of the cervical musculature. He was advised follow-up with his PCP in the next week for re-evaluation. He was educated on Tylenol and ibuprofen use as well as heating pad use. Patient was agreeable to this plan. Given strict return precautions. Imaging Data Attestation: I personally reviewed and interpreted this imaging study as follows: My impression: CT head: No acute intracranial process, no intracranial hemorrhage, no masses Radiologist's impression: CT head: No acute intracranial hemorrhage. No midline shift or mass effect. The territorial raygoza-white matter differentiation is maintained throughout. The ventricles and sulci are commensurate with Discharge Plan Discharge Clinical Impression: Headache Qualifiers: Headache type: tension-type Headache chronicity pattern: acute headache Intractability: not intractable Qualified Code(s): G44.209 - Tension-type headache, unspecified, not intractable Patient Disposition: Home Condition: Stable Instructions: Antibiotic Form, Acute Headache (ED) Additional Instructions: CT of your head showed no concerning findings. You may take Tylenol and ibuprofen for your headache. Follow-up with your PCP as scheduled. Return to the ED for any new or worsening symptoms. For pain, discomfort or temperature greater than or equal to 100.8 ?F please alternate the following 2 medications as needed. First medication- acetaminophen/Tylenol- 1000mg every 6-8 hours as needed for above indications. Second medication- ibuprofen/Motrin-600mg every 6-8 hours as needed for above indication. Patient Language: Chinese Prescriptions: No Action pantoprazole 40 mg tablet,delayed release (DR/EC) 40 mg PO QAM Qty: 30 3RF dextroamphetamine-amphetamine [Adderall XR] 10 mg capsule,extended release 24hr 10 mg PO DAILY Qty: 30 0RF Follow-up/Referrals: Sammy Bhatti MD [Primary Care Provider, Family Practice] Stand Alone Forms: Work/School Release IP
--- NOTE | 2025-06-30 21:00 | PC.NURSE ---
Medication coming from pharmacy. Will administer once medication is received.
[2025-06-30] MEDS: PROCHLORPERAZINE MALEATE 5 MG TABLET 10 MG PO (21:09)
[2025-06-30] MEDS: dexAMETHasone SOD PHOS INJ 10 MG/ML 1 ML VIAL IM (21:09)
[2025-06-30] MEDS: diphenhydrAMINE HCl CAP 25 MG CAPSULE PO (21:10)
[2025-06-30] MEDS: KETOROLAC 30 MG/ML VIAL (*BKC) IM (21:35)
[2025-06-30 23:32] VITALS: BP 117/80; PULSE 78; RESP 18; TEMP 36; O2SAT 99
== END 2025-06-30 23:34 | disposition home or self-care (01) ==
PROVIDERS: Emergency Provider Student in an Organized Health Care Education/Training Program; PCP Family Medicine Adolescent Medicine
DX: G44.209 Tension-type headache, unspecified, not intractable (principal); D50.9 Iron deficiency anemia, unspecified; K21.00 Gastro-esophageal reflux disease with esophagitis, without bleeding; F90.9 Attention-deficit hyperactivity disorder, unspecified type; Z87.891 Personal history of nicotine dependence; Z79.899 Other long term (current) drug therapy
CPT/HCPCS: 70450; 96372; 99284; A9270; J1100; J1885

== ENCOUNTER 2025-07-22 08:49 | Outpatient (CLI) | payer BC, SELFPAY ==
--- OUTSIDE RECORDS SUMMARY | 2025-07-22 11:07 | XMS_ITS | Clinical Summary ---
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 Gender Identity Not on file Sexual Orientation Not on file Last Filed Vital Signs Vital Sign Reading Time Taken Comments Blood Pressure - - Pulse - - Temperature - - Respiratory Rate - - Oxygen Saturation - - Inhaled Oxygen Concentration - - Weight 87.5 kg (193 lb) 10/09/2023 10:25 AM YARN PREPARATION SUPERVISOR Height 170.2 cm (5' 7) 10/09/2023 10:25 AM YARN PREPARATION SUPERVISOR Body Mass Index 30.23 10/09/2023 10:25 AM YARN PREPARATION SUPERVISOR Plan of Treatment Health Maintenance Due Date [...] age to complete this topic Insurance BLUE [facility] CHOICE OOS [facility] Address: [address] [place] [address] [facility] WORKERS COMPENSATION GENERIC Care Teams Newspaper Delivery Counselor Relationship Specialty Start Date End Date Phyllis Vyas MD PCP - General Family Medicine 10/09/23
--- OUTSIDE RECORDS SUMMARY | 2025-07-22 11:07 | XMS_ITS | Clinical Summary ---
Author Organization [facility] Address [address] [facility] [place] [address] Care Team Providers Care System Planning Engineer Name Role Phone Tia Stone MD Primary Care Provider + Source Comments [facility],non-owned Affiliates and Associated Physician Practices is amultiple site organization consisting of ambulatory clinics and hospital sitesin [place], [place], [place] and [place]. This disclosure is being madepursuant to the Care Everywhere program and may not contain all informatio navailable regarding this patient. 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 Gender Identity Not on file Sexual Orientation [...] DEPRESSION SCREENING 09/03/2024 COVID-19 VACCINE (1 - 2024-2 6 season) 2025 INFLUENZA VACCINE (#1) 2025 ZOSTER [...] Patient Date of Phone Billing Address Personal/Family [address] [place], [place] [address] [address] [facility] SELF PAY NO INSURANCE Member Subscriber Plan / Payer (Ef fective for All Dates) Name:Elgin Gonzalez Member ID:Not on file Relation to Subscriber:Not on file Name:ELGIN GONZALEZ Subscriber ID:Not on file Address: [address] [place] [address] Payer ID:Not on file Group ID:Not on file Type:Self Pay Address: [place], [place] * Guarantor: ELGIN GONZALEZ Account Type Relation to Patient Date of Phone Billing Address Personal/Family [address] [place] [address] [facility] SELF PAY NO INSURANCE Member Subscriber Plan / Payer (Ef fective for All Dates) Name:Elgin Gonzalez Member ID:Not on file Relation to Subscriber:Not on file Name:ELGIN GONZALEZ Subscriber ID:Not on file Address: [facility] [place] [address] Payer ID:Not on file Group ID:Not on file Type:Self Pay Address: [place], [place] * Guarantor: ELGIN GONZALEZ Account Type Relation to Patient Date of Phone Billing Address Personal/Family [address] [place] [address] [facility] SELF PAY NO INSURANCE Member Subscriber Plan / Payer (Ef fective for All Dates) Name:Elgin Gonzalez Member ID:Not on file Relation to Subscriber:Not on file Name:ELGIN GONZALEZ Subscriber ID:Not on file Address: [address] [place] [address] [place] [address] Payer ID:Not on file Group ID:Not on file Type:Self Pay Address: [place], [place] Care Teams System Planning Engineer Relationship Specialty Start Date End Date Tia Stone MD [address] [place] [address] PCP - General 05/31/09
--- NOTE | 2025-08-12 07:57 | P.SLEEP_ITS ---
Sleep Study Date of Study: 07/22/25 Ordering Provider: Nini Melchor PA-C Interpreting Physician: Shaunna Bello DO Sleep Study Type: Polysomnogram Height: 1.7 m Weight: 81.647 kg Body Mass Index: 28.1 Neck Circumference (inches): 15 [place]: 18 Reason for Sleep Study Excessive daytime sleepiness PMFSH Past Medical History Medical History Nicotine dependence, unspecified, uncomplicated Esophageal dysmotility Allergic rhinitis, unspecified Acute pharyngitis, unspecified Acute pharyngitis due to other specified organisms Abdominal pain, RUQ Abdominal bloating Eosinophilic esophagitis ADHD Neoplasm of left fibula GERD (gastroesophageal reflux disease) Surgical History Surgical History H/O vasectomy H/O hand surgery Family History Family History Father Alcoholism Mother Diabetes mellitus Sibling Asthma Social History Social History Smoking packs per day: 1 Smoking cigarettes per day: 20.0 Smoking status: Former smoker Tobacco type: cigarettes Second hand tobacco smoke exposure: No Smoking end date: 09/03/17 Alcohol intake: current Drinks per week: 1 Substance use: never Substance use type: does not use Lack of Transportation: No Lack of Food: Never True Current Housing: I Have Housing Concerned About Future Housing: No Difficulty Paying Gas/Electric Bills: No Difficulty Paying for Meds: No Currently Unemployed: No Difficulty w/ Childcare or Family Care: No Living arrangements: with family Occupation/Education: occupation Gender identity (if verbalized by the patient): Male Spiritual care concerns: No Agree to blood products: Yes Medications Home Medications ?Medication ?Instructions ?Recorded ?Confirmed ?Type pantoprazole 40 mg tablet,delayed 40 mg PO QAM #30 tab s 10/13/24 06/29/25 Rx release dextroamphetamine-amphetamine ER 10 mg PO DAILY #30 ca ps 07/17/25 Rx 10 mg 24hr capsule,extend release (Adderall XR) Sleep Procedure A full night polysomnogram using the [employer] multi-channel system recorded the standard physiologic parameters including EEG, EOG, submentalis EMG, anterior tibialis EMG, EKG, body position, nasal and oral airflow using nasal pressure sensor and thermistor.? Respiratory parameters of chest and abdominal movements were recorded with Respiratory Inductance Plethysmography belts. Oxygen saturation was recorded by pulse oximetry. Video monitoring was also performed. Sleep stages, periodic limb movements, and EEG arousals were scored in 30 second epochs according to the criteria of the AASM Scoring Manual. The Apnea-Hypopnea Index was calculated using CMS guidelines for definition of hypopnea with 4% O2 desaturations while scoring respiratory events. Sleep Architecture The total recording time was 505.5 minutes.? The total sleep time was 459.5 minutes. Sleep latency was 13.0 minutes. REM latency was 74.5 minutes. Sleep efficiency was 90.9%. The patient had 27 awakenings for an awakening index of 3.5. Wake after sleep onset time was 33.0 minutes. The patient spent 26.5 minutes, 5.8% of total sleep time in Stage N1. The patient spent 287.5 minutes, 62.6% in Stage N2. The patient spent 51.0 minutes, 11.1% in Stage N3. The patient spent 94.5 minutes, 20.6% in Stage REM sleep. Respiratory Analysis The patient had 9 hypopneas, - obstructive apneas, - mixed apneas, and 1 central apneas for an overall Apnea Hypopnea Index of 1.3. The REM Apnea Hypopnea Index was 4.4. The NREM Apnea Hypopnea Index was 1.0. The patient had a Central Apnea Hypopnea Index of 0.1. There were - Respiratory Effort Related Arousals resulting in a RERA index of - events per hour. The Respiratory Disturbance Index is 2.2 events per hour. There was no evidence of Bird-Gomez Respirations. Arousals There were 87 total arousals for an arousal index of 11.4. There were 37 spontaneous arousals for an index of 4.8. There were 5 arousals due to respiratory events for an index of 0.7. There were 4 arousals due to periodic limb movements for an index of 0.5.? There were 43 arousals due to isolated limb movements for an index of 5.6. Periodic Limb Movements The patient had 60 isolated limb movements with an index of 7.8. The patient had 16 periodic limb movements with an index of 2.1. Patient had a total of 76 limb movements with a total limb movement index of 9.9. Oximetry Data The patient had an average oxygen saturation of 93.8% in sleep with a minimum oxygen saturation of 88.0% and a maximum oxygen saturation of 99.0%. The patient had 9 oxygen desaturations that were 4% or greater resulting in an Oxygen Desaturation Index of 1.2.? The patient spent [min] minutes, [%] of total sleep time with an oxygen saturation below 88%. Cardiac Profile The EKG showed normal sinus rhythm.? The patient had an average pulse rate of 63.5 bpm with a minimum pulse of rate of 48.0 bpm and a maximum pulse rate of 99.0 bpm.? EEG Profile No signs of seizure activity seen. Assessment and Plan Data The data obtained during this sleep study is adequate for interpretation. Certification This sleep study has been reviewed by a board certified sleep medicine physician.
[2025-08-12 07:59] VITALS: BMI 28.1
== END 2025-07-23 07:09 | disposition home or self-care (01) ==
PROVIDERS: PCP Family Medicine; Visit Provider Student in an Organized Health Care Education/Training Program
DX: G47.39 Other sleep apnea (principal)
CPT/HCPCS: 95810

== ENCOUNTER 2025-08-11 13:15 | Outpatient (CLI) | payer BC, SELFPAY ==
--- NOTE | 2025-08-11 13:55 | NEURO_ITS ---
Impression: # Non-diabetic complains of spasms in lower extremities. ? # Normal motor/sensory Nerve Conduction Study. ? # Normal Needle/ EMG exam without myotonia denervation potentials. ? # Clinical correlation recommended. Nerve Conduction Studies ?Stim Site NR Peak (ms) P-T Amp (?V) Site1 Site2 Delta-P (ms) Dist (cm) Aryan (m/s) Left Sup Fibular Anti Sensory (Ant Lat Mall) 14 cm ? 3.0 15.9 14 cm Ant Lat Mall 3.0 16.0 53 Right Sup Fibular Anti Sensory (Ant Lat Mall) 14 cm ? 3.2 12.4 14 cm Ant Lat Mall 3.2 16.0 50 Left Sural Anti Sensory (Lat Mall) Calf ? 3.5 14.3 Calf Lat Mall 3.5 16.0 46 Right Sural Anti Sensory (Lat Mall) Calf ? 3.8 10.3 Calf Lat Mall 3.8 16.0 42 ?Stim Site NR Onset (ms) O-P Amp (mV) Site1 Site2 Delta-0 (ms) Dist (cm) Aryan (m/s) Left Peroneal Motor (Vastus Med) Ankle ? 4.8 2.4 Popit Ankle 7.3 40.0 55 Popit ? 12.1 2.1 Right Peroneal Motor (Vastus Med) Ankle ? 4.2 2.8 Popit Ankle 7.1 38.0 54 Popit ? 11.3 4.8 Left Tibial Motor (Abd Barton Brev) Ankle ? 3.6 5.9 Knee Ankle 8.7 40.0 46 Knee ? 12.3 4.2 Right Tibial Motor (Abd Barton Brev) Ankle ? 3.6 9.0 Knee Ankle 8.5 41.0 48 Knee ? 12.1 5.5 F Wave Studies ?NR F-Lat (ms) L-R F-Lat (ms) Left Peroneal (Mrkrs) (EDB) ? 53.13 7.87 Right Peroneal (Mrkrs) (EDB) ? 45.26 7.87 Left Tibial (Mrkrs) (Abd Hallucis) ? 48.87 3.40 Right Tibial (Mrkrs) (Abd Hallucis) ? 45.47 3.40 Electromyography ?Side Muscle Nerve Root Ins Act Fibs Amp Dur Recrt Comment Right AntTibialis Dp Br Fibular L4-5 Nml Nml Nml Nml Nml Right Gastroc Tibial S1-2 Nml Nml Nml Nml Nml Right Fibularis Long Sup Br Fibular L5-S1 Nml Nml Nml Nml Nml Right Flex Dig Long Tibial L5-S2 Nml Nml Nml Nml Nml Right Ext Dig Brev Dp Br Fibular L5, S1 Nml Nml Nml Nml Nml Right QuadratusFem QuadFemoris L4-5, S1 Nml Nml Nml Nml Nml Left AntTibialis Dp Br Fibular L4-5 Nml Nml Nml Nml Nml Left Gastroc Tibial S1-2 Nml Nml Nml Nml Nml Left Fibularis Long Sup Br Fibular L5-S1 Nml Nml Nml Nml Nml Left Flex Dig Long Tibial L5-S2 Nml Nml Nml Nml Nml Left Ext Dig Brev Dp Br Fibular L5, S1 Nml Nml Nml Nml Nml Left QuadratusFem QuadFemoris L4-5, S1 Nml Nml Nml Nml Nml
== END 2025-08-11 13:16 | disposition home or self-care (01) ==
LOC: ANHNEURO 13:21
PROVIDERS: PCP Family Medicine; Visit Provider Student in an Organized Health Care Education/Training Program
DX: R25.2 Cramp and spasm (principal); R20.2 Paresthesia of skin
CPT/HCPCS: 95886; 95910

== ENCOUNTER 2025-08-24 15:30 | Outpatient (CLI) | payer BC, SELFPAY ==
[2025-08-24 16:40] LABS: Hematocrit 46.0 % (42.0-52.0); Hemoglobin 15.3 g/dL (14.0-18.0); Immature Granulocyte Percent A 0.2 % (0-0.5); Lymphocytes Absolute Auto 2.90 K/mm3 (0.9-3.2); Mean Corpuscular HGB Conc 33.3 g/dl (32-36); Mean Corpuscular Hemoglobin 29.8 pg (26-34); Mean Corpuscular Volume 89.7 fl (80-100); Nucleated Red Blood Cells Absolute Auto 0.000 K/mm3 (0.0-0.012); Nucleated Red Blood Cells Perc 0.0 % (0.0-0.2); Platelet Count Result 308 k/mm3 (150-375); Red Blood Count 5.13 M/mm3 (4.6-6.20); White Blood Count 8.2 K/mm3 (4.5-10.0)
[2025-08-24 16:43] LABS: Iron 76 ug/dL (49-181)
[2025-08-24 16:52] LABS: Percent Iron Saturation 16 % (20-50)
--- OUTSIDE RECORDS SUMMARY | 2025-08-24 16:58 | XMS_ITS | Clinical Summary ---
Author Organization [facility] Address [address] [facility] [place] [address] Care Team Providers Care Tissue Packer Name Role Phone Tia Stone MD Primary Care Provider + Source Comments [facility],non-owned Affiliates and Associated Physician Practices is amultiple site organization consisting of ambulatory clinics and hospital sitesin [place], [place], [place] and [place]. This disclosure is being madepursuant to the Care Everywhere program and may not contain all informatio navailable regarding this patient. 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 Address: [facility] [address] [place] [address] SELF PAY NO INSURANCE Member Subscriber Plan / Payer (Ef fective for All Dates) Name:Elgin Gonzalez Member ID:Not on file Relation to Subscriber:Not on file Name:ELGIN GONZALEZ Subscriber ID:Not on file Address: [address] [place] [address] Payer ID:Not on file Group ID:Not on file Type:Self Pay Address: [place], [place] * Guarantor: ELGIN GONZALEZ Account Type Relation to Patient Date of Phone Billing Address Personal/Family [address] [place] [address] [facility] SELF PAY NO INSURANCE Member Subscriber Plan / Payer (Ef fective for All Dates) Name:Elgin Gonzalez Member ID:Not on file Relation to Subscriber:Not on file Name:ELGIN GONZALEZ Subscriber ID:Not on file Address: [facility] [address] [place] [address] Payer ID:Not on file Group ID:Not on file Type:Self Pay Address: [place], [place] * Guarantor: ELGIN GONZALEZ Account Type Relation to Patient Date of Phone Billing Address Personal/Family [address] [place] [address] [facility] SELF PAY NO INSURANCE Member Subscriber Plan / Payer (Ef fective for All Dates) Name:Elgin Gonzalez Member ID:Not on file Relation to Subscriber:Not on file Name:ELGIN GONZALEZ Subscriber ID:Not on file Address: [address] [place] [address] [place] [address] Payer ID:Not on file Group ID:Not on file Type:Self Pay Address: [place], [place] Care Teams Tissue Packer Relationship Specialty Start Date End Date Tia Stone MD [address] [place] [address] PCP - General 05/31/09
--- OUTSIDE RECORDS SUMMARY | 2025-08-24 16:58 | XMS_ITS | Clinical Summary ---
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 Gender Identity Not on file Sexual Orientation Not on file Last Filed Vital Signs Vital Sign Reading Time Taken Comments Blood Pressure - - Pulse - - Temperature - - Respiratory Rate - - Oxygen Saturation - - Inhaled Oxygen Concentration - - Weight 87.5 kg (193 lb) 10/09/2023 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
[2025-08-24 17:24] LABS: Ferritin 9.50 ng/mL (17.9-464)
== END 2025-08-24 15:31 | disposition home or self-care (01) ==
PROVIDERS: PCP Family Medicine; Visit Provider Student in an Organized Health Care Education/Training Program
DX: D50.9 Iron deficiency anemia, unspecified (principal)
CPT/HCPCS: 36415; 82728; 83540; 83550; 85025